=== PATIENT | male | born 1980 | race Two or more races ===

== ENCOUNTER 2019-07-24 20:43 | Inpatient (IN) | payer MEDICAID ==
[~2019-07-24] VITALS: Ht 162.6 cm; Wt 61.7 kg
[2019-07-24 20:45] VITALS: BP 146/72
--- NOTE | 2019-07-24 20:45 | NUR ---
ED Nurse Note: Pt biba from home CO alcohol withdrawl and possible sz. PT VS elevated, ermd aware. Pt confused and disoriented, aao x 2. Pt restless, japanese speaking only. PT has bruising on bottom lip bilaterally from chewing on lips. ERMD at bedside
--- NOTE | 2019-07-24 20:50 | NUR ---
ED Nurse Note: pt has bruising and bite nickerson on left side of tongue, ERMD aware.
--- NOTE | 2019-07-24 20:58 | Emergency Room Report ---
History of Present Illness General Chief Complaint: General Complaint Present Illness HPI 39-year-old male presented by EMS from home due to possible alcohol withdrawal. Patient has a history of heavy drinking, apparently last drink was yesterday, family noted patient having tremors and confused so EMS was called. Patient was confused on arrival to the ER. Family reports that patient has a history of alcohol withdrawal. Patient denied any pain and otherwise denies any medical history. Allergies: Coded Allergies: No Known Allergies (Unverified , 01/06/13) COVID-19 Screening Contact w/high risk pt: No Recent Travel to affected area: No Experienced COVID-19 symptoms?: No Patient History Reviewed Nursing Documentation: PMH: Agreed; PSxH: Agreed Nursing Documentation-PMH Hx Hypertension: Yes Hx Diabetes: Yes Review of Systems All Other Systems: negative except mentioned in HPI Physical Exam Vital Signs Date Time Temp Pulse Resp B/P (MAP) Pulse Ox O2 Delivery O2 Flow Rate FiO2 07/24/19 20:39 97.9 96 20 146/72 (96) 97 Room Air Sp02 EP Interpretation: reviewed, normal General Appearance: well appearing, other - Patient appears tremulous Head: normocephalic, atraumatic Eyes: bilateral eye PERRL, bilateral eye EOMI ENT: hearing grossly normal, moist mucus membranes Neck: full range of motion, supple Respiratory: lungs clear, normal breath sounds, no rhonchi, no respiratory distress, no retraction, no wheezing Cardiovascular #1: normal peripheral pulses, no murmur, tachycardia Gastrointestinal: non tender, soft, non-distended, no guarding Neurologic: alert, no focal defects, other - Patient alert and oriented to name and place, tremor noted Skin: normal color, warm/dry Procedures Critical Care Time Critical Care Time Local care critical care is managing this patient due to presentation alcohol withdrawal requiring acute intervention. Critical care time is approximately 35 minutes and excludes procedures Medical Decision Making Diagnostic Impression: Primary Impression: Acute hyperactive alcohol withdrawal delirium ER Course Differential diagnosis included but not limited to alcohol intoxication, delirium tremens, alcohol withdrawal, drug intoxication, dehydration to name a few. In the ER laboratory studies were sent, Ativan given 2 mg IV once. IV fluids given. Patient required multiple doses of Ativan in the ER. He remained mildly confused and with tremor and signs of alcohol withdrawal so we will plan to admit to telemetry for further observation and treatment. Patient admitted to the hospitalist. Laboratory Tests Test 07/24/19 21:00 07/24/19 22:20 White Blood Count 10.8 K/UL (4.8-10.8) Red Blood Count 4.26 M/UL (4.70-6.10) L Hemoglobin 12.8 G/DL (14.2-18.0) L Hematocrit 40.4 % (42.0-52.0) L Mean Corpuscular Volume 95 FL (80-99) Mean Corpuscular Hemoglobin 30.0 PG (27.0-31.0) Mean Corpuscular Hemoglobin Concent 31.7 G/DL (32.0-36.0) L Red Cell Distribution Width 15.5 % (11.6-14.8) H Platelet Count 77 K/UL (150-450) L Mean Platelet Volume 8.2 FL (6.5-10.1) Neutrophils (%) (Auto) 84.7 % (45.0-75.0) H Lymphocytes (%) (Auto) 6.2 % (20.0-45.0) L Monocytes (%) (Auto) 8.5 % (1.0-10.0) Eosinophils (%) (Auto) 0.0 % (0.0-3.0) Basophils (%) (Auto) 0.6 % (0.0-2.0) Sodium Level 134 MMOL/L (136-145) L Potassium Level 3.4 MMOL/L (3.5-5.1) L Chloride Level 95 MMOL/L (98-107) L Carbon Dioxide Level 19 MMOL/L (21-32) L Anion Gap 20 mmol/L (5-15) H Blood Urea Nitrogen 16 mg/dL (7-18) Creatinine 1.4 MG/DL (0.55-1.30) H Estimated Glomerular Filtration Rate 56.4 mL/min (>60) Glucose Level 149 MG/DL (74-106) H Calcium Level 9.8 MG/DL (8.5-10.1) Total Bilirubin 1.4 MG/DL (0.2-1.0) H Direct Bilirubin 0.6 MG/DL (0.0-0.3) H Aspartate Amino Transferase (AST) 130 U/L (15-37) H Alanine Aminotransferase (ALT) 60 U/L (12-78) Alkaline Phosphatase 157 U/L (46-116) H Total Protein 8.6 G/DL (6.4-8.2) H Albumin 4.2 G/DL (3.4-5.0) Globulin 4.4 g/dL Albumin/Globulin Ratio 1.0 (1.0-2.7) Lipase 308 U/L (73-393) Serum Alcohol < 3 mg/dL Urine Color Yellow Urine Appearance Clear Urine pH 7 (4.5-8.0) Urine Specific [place] 1.010 (1.005-1.035) Urine Protein 3+ (NEGATIVE) H Urine Glucose (UA) Negative (NEGATIVE) Urine Ketones Negative (NEGATIVE) Urine Blood 3+ (NEGATIVE) H Urine Nitrite Negative (NEGATIVE) Urine Bilirubin Negative (NEGATIVE) Urine Urobilinogen Normal MG/DL (0.0-1.0) Urine Leukocyte Esterase 1+ (NEGATIVE) H Urine RBC Pending Urine WBC Pending Urine Squamous Epithelial Cells Pending Urine Bacteria Pending Urine Opiates Screen Pending Urine Barbiturates Screen Pending Phencyclidine (PCP) Screen Pending Urine Amphetamines Screen Pending Urine Benzodiazepines Screen Pending Urine Cocaine Screen Pending Urine Marijuana (THC) Screen Pending EKG Diagnostic Results Rate: tachycardiac Rhythm: NSR ST Segments: no acute changes Other Impression Sinus tachycardia Rhythm Strip Diag. Results Rate: 104 Rhythm: other - Sinus tachycardia Last Vital Signs Date Time Temp Pulse Resp B/P (MAP) Pulse Ox O2 Delivery O2 Flow Rate FiO2 07/24/19 20:39 97.9 96 20 146/72 (96) 97 Room Air Disposition: ADMITTED INPATIENT Condition: Serious Donovan Odom M.D. Jul 24, 2019 20:58
[2019-07-24] MEDS ORDERED: LORazepam Inj 2mg/ml 1ml IV ONE ×4 (21:00→23:00)
--- NOTE | 2019-07-24 21:00 | NUR ---
ED Nurse Note: blood work sent to lab, iv on left AC. Pt in bed.
[2019-07-24 21:22] LABS: HEMATOCRIT 40.4 % (42.0-52.0); HEMOGLOBIN 12.8 G/DL (14.2-18.0); MEAN CORPUSCULAR VOLUME 95 FL (80-99); PLATELET COUNT 77 K/UL (150-450); RED BLOOD COUNT 4.26 M/UL (4.70-6.10); RED CELL DISTRIBUTION WIDTH 15.5 % (11.6-14.8); WHITE BLOOD COUNT 10.8 K/UL (4.8-10.8)
[2019-07-24 21:23] LABS: BASOPHILS % (AUTO) 0.6 % (0.0-2.0); LYMPHOCYTES % (AUTO) 6.2 % (20.0-45.0); MONOCYTES % (AUTO) 8.5 % (1.0-10.0); NEUTROPHILS % (AUTO) 84.7 % (45.0-75.0)
[2019-07-24 21:28] LABS: ANION GAP 20 mmol/L (5-15); BLOOD UREA NITROGEN 16 mg/dL (7-18); CALCIUM 9.8 MG/DL (8.5-10.1); CARBON DIOXIDE 19 MMOL/L (21-32); CHLORIDE 95 MMOL/L (98-107); CREATININE 1.4 MG/DL (0.55-1.30); POTASSIUM 3.4 MMOL/L (3.5-5.1); SODIUM 134 MMOL/L (136-145)
--- NOTE | 2019-07-24 21:29 | NUR ---
ED Nurse Note: Pt took out IV on Left AC and climbed out of bed. Pt placed back in bed, new iv started on Right ac 20g patent and flowing. IV fluids running. All medications administered. pt tolerated well no ss of distress noted.
--- NOTE | 2019-07-24 21:33 | NUR ---
PATIENTS FAMILY MEMBER [phone]
[2019-07-24 21:42] LABS: ALANINE AMINOTRANSFERASE 60 U/L (12-78); ALBUMIN 4.2 G/DL (3.4-5.0); ALKALINE PHOSPHATASE 157 U/L (46-116); ASPARTATE AMINO TRANSFERASE 130 U/L (15-37); BILIRUBIN,TOTAL 1.4 MG/DL (0.2-1.0)
[2019-07-24 21:45] LABS: BILIRUBIN,DIRECT 0.6 MG/DL (0.0-0.3)
--- NOTE | 2019-07-24 22:25 | NUR ---
ED Nurse Note: UA obtained and sent to lab
[2019-07-24 22:32] LABS: APPEARANCE,URINE CLEAR; BILIRUBIN, URINE NEGATIVE (NEGATIVE); GLUCOSE, URINE (UA) NEGATIVE (NEGATIVE); KETONES,URINE NEGATIVE (NEGATIVE); LEUKOCYTE ESTERASE ,URINE 1+ (NEGATIVE); NITRITE,URINE NEGATIVE (NEGATIVE); PH,URINE 7 (4.5-8.0); PROTEIN,URINE 3+ (NEGATIVE); UROBILINOGEN,URINE NORMAL MG/DL (0.0-1.0)
[2019-07-24 22:33] LABS: COLOR,URINE YELLOW
[2019-07-24] MEDS ORDERED: LORazepam Inj 2mg/ml 1ml IV PRN (22:45)
[2019-07-24] MEDS ORDERED: LORazepam Inj 2mg/ml 1ml ONE (22:52)
--- NOTE | 2019-07-24 23:56 | NUR ---
ED Nurse Note: report given to FLORI Pinto TELE unit. no bed, pending transfer
[2019-07-25] MEDS ORDERED: Folic Acid 1 MG, Magnesium Sulfate 2,000 MG, Multivitamin - 12 Injection 10 ML in Sodiu... IV ONE ×4
[2019-07-25] MEDS ORDERED: LORazepam Inj 2mg/ml 1ml IV ONE
[2019-07-25] MEDS ORDERED: Thiamine 100mg in D5W 55ml IVPB ONE ×2
--- NOTE | 2019-07-25 00:10 | NUR ---
ER DISCHARGE NOTE: Patient is cleared to be discharged to telemetry unit per ERMD, pt is aox2, on room air, with elevated vital signs; ERMD aware. pt was able to verbalize understanding. pt is unable to ambulate steadily. pt took all belongings. Report given to FLORI Pinto. Pt transferred with 1 RN and 1 property maintenance supervisor
[2019-07-25 00:15] VITALS: BP 137/92
--- NOTE | 2019-07-25 00:15 | NUR ---
NURSE NOTES: RECEIVED PATIENT FROM FLORI SULLIVAN. PATIENT TRANSFERRED TO TELEMETRY FROM ED VIA GURNEY ACCOMPANIED BY TWO STAFF MEMBERS, WITHOUT ANY INCIDENT. PATIENT NOTED TO BE RESTLESS AND COMBATIVE DURING TRANSFER. PATIENT'S BREATHING EVEN AND UNLABORED ON 2L VIA NASAL CANNULA, NO S/SX OF DISTRESS. PATIENT HAS SOFT RESTRAINTS ON BILATERAL WRISTS- NOTED TO HAVE GOOD CIRCULATION, GOOD SENSATION, AND SKIN INTACT. PATIENT PLACED ON BULL WHEEL WORKER, SINUS TACHY ON MONITOR WITH HR OF 111 BPM. BELONGINGS LIST CHECKED WITH TRANSFERRING RN. BODY ASSESSMENT DONE, UNABLE TO OBTAIN COMPLETE MEDICAL HISTORY DUE TO PATIENT'S CURRENT CONDITION. IV SITE ON RIGHT FOREARM INTACT AND PATENT, WITH NS RUNNING FROM ED. PADDED SIDERAILS UP X 2. BED LOCKED AND IN LOWEST POSITION. CALL LIGHT WITHIN REACH. WILL CONTINUE TO MONITOR.
[2019-07-25] MEDS ORDERED: Folic Acid 5mg/ml Vial IV ONE (00:58)
[2019-07-25] MEDS ORDERED: MVI-12 10ml Inj IV ONE (01:12)
--- NOTE | 2019-07-25 01:30 | NUR ---
NURSE NOTES: CONTACTED DR. HOLDEN REGARDING ORDER FOR BANANA BAG OF FOLIC ACID/MAG SULFATE/MULTIVITAMIN- PER PHARMACY, UNABLE TO MIX OVERNIGHT. WAITING FOR DOCTOR TO CALL BACK.
[2019-07-25 04:00] VITALS: BP 125/85
[2019-07-25] MEDS: NS w/KCl 20mEq 1000ml 1,000 ML IV SCH ×3 (04:16→18:33)
[2019-07-25] MEDS ORDERED: LORazepam Inj 2mg/ml 1ml IV PRN (06:12)
--- NOTE | 2019-07-25 07:30 | NUR ---
NURSE NOTES: pt in bed having breakfast. site monitor on, pt has no signs of cardiac or respiratory distress at this time. Call light within reach, bed is in lowest position and locked. Rails up x2, bed alarm on. Rails are padded. Pt mouth is swollen and has scabs. pt on restrains. Will continue to monitor pt and lab values. Reported to dr. Alberto pt T 100.7.
[2019-07-25 07:34] LABS: ANION GAP 12 mmol/L (5-15); BLOOD UREA NITROGEN 13 mg/dL (7-18); CALCIUM 9.4 MG/DL (8.5-10.1); CARBON DIOXIDE 24 MMOL/L (21-32); CHLORIDE 104 MMOL/L (98-107); CREATININE 0.8 MG/DL (0.55-1.30); POTASSIUM 3.9 MMOL/L (3.5-5.1); SODIUM 140 MMOL/L (136-145)
--- NOTE | 2019-07-25 07:42 | NUR ---
HAND-OFF: Report given to FLORI LOZOYA. PLAN OF CARE ENDORSED.
[2019-07-25 07:45] LABS: ALANINE AMINOTRANSFERASE 54 U/L (12-78); ALBUMIN 3.9 G/DL (3.4-5.0); ALBUMIN/GLOBULIN RATIO 0.9 (1.0-2.7); ALKALINE PHOSPHATASE 134 U/L (46-116); ASPARTATE AMINO TRANSFERASE 147 U/L (15-37); BILIRUBIN,TOTAL 1.5 MG/DL (0.2-1.0)
[2019-07-25 07:47] LABS: BILIRUBIN,DIRECT 0.5 MG/DL (0.0-0.3)
[2019-07-25 08:06] VITALS: BP 124/86
[2019-07-25] MEDS ORDERED: LORazepam 1mg tab ORAL PRN (08:30)
--- NOTE | 2019-07-25 08:45 | History and Physical Report ---
DATE OF ADMISSION: 07/24/2019 CHIEF COMPLAINT: Alcohol withdrawal. HISTORY OF PRESENT ILLNESS: The patient is a 39-year-old male. He has a history of heavy alcohol use, questionable seizures, he presented with alcohol withdrawal. He is a poor historian. He states he has been drinking for "years." He is unclear of his last drink, but he was brought in by family members because of alcohol intoxication and possible seizure. In the ER, he was noted to be agitated and confused, requiring several doses of Ativan. He is now admitted for further evaluation and care. He denies fevers, chills, or cough. PAST MEDICAL HISTORY: As above. PAST SURGICAL HISTORY: None. CURRENT MEDICATIONS: None. FAMILY HISTORY: None. SOCIAL HISTORY: Significant for at least nine years of heavy alcohol use. REVIEW OF SYSTEMS: Unremarkable. PHYSICAL EXAMINATION: VITAL SIGNS: Temperature 99, pulse 109, respirations 24, blood pressure 125/85. GENERAL: The patient is well developed. There is noted to be some swelling of his lips. NECK: Supple. HEART: Regular rate and rhythm. LUNGS: Clear. ABDOMEN: Soft. EXTREMITIES: Without clubbing, cyanosis, or edema. LABORATORY DATA: Labs were reviewed. ASSESSMENT: This is a 39-year-old male admitted with complaints of alcohol withdrawal. PLAN: IV fluids, thiamine supplementation, Ativan for withdrawal. Discharge plan in the next 24 to 48 hours depending on how the patient's alcohol withdrawal is doing. Jourdan Kenney M.D. DR: SHERRI JOB#: [id number] CC:
[2019-07-25] MEDS ORDERED: Heparin 5000 units/ml inj SUBQ SCH (09:00)
[2019-07-25] MEDS: Folic Acid 1 MG, Magnesium Sulfate 2,000 MG, Multivitamin - 12 Injection 10 ML in Sodiu... IV SCH (09:00)
[2019-07-25] MEDS ORDERED: Thiamine 100mg tab ORAL SCH (09:00)
[2019-07-25] MEDS: Thiamine 100mg in D5W 55ml IVPB SCH (11:08)
[2019-07-25 12:14] VITALS: BP 139/90
[2019-07-25] MEDS ORDERED: Tubing IV Secondary IV ONE (12:37)
[2019-07-25 16:21] VITALS: BP 129/89
--- NOTE | 2019-07-25 19:38 | NUR ---
HAND-OFF: Report given to Marifer/hebert pt in stable condition.
[2019-07-25 20:02] VITALS: BP 116/79
--- NOTE | 2019-07-25 21:32 | NUR ---
NURSE NOTES: Received pt from FLORI Jaramillo. Pt awake, alert, and talkative (south african speaking only). Bed in lowest position. Call light within reach. Sitter at bedside. Will continue to monitor.
[2019-07-26] VITALS: BP 123/77
[2019-07-26] MEDS: NS w/KCl 20mEq 1000ml 1,000 ML IV SCH ×3 (03:00→19:00)
[2019-07-26 04:00] VITALS: BP 197/169
--- NOTE | 2019-07-26 07:29 | NUR ---
HAND-OFF: Report given to FLORI Jaramillo. Pt stable.
--- NOTE | 2019-07-26 07:41 | NUR ---
NURSE NOTES: pt is very agitated pulling everything, IV cloth. Pt on flume ride operator tachycardic, no respiratory distress at this time. Sitter at bedside, pt has restraints on but pulls them off all the time. Bed alarm on, side rails up x2, bed in lowest position. Call light within reach. Pt is alert x1 but very confused.
[2019-07-26 07:50] VITALS: BP 153/109
[2019-07-26] MEDS: Folic Acid 1 MG, Magnesium Sulfate 2,000 MG, Multivitamin - 12 Injection 10 ML in Sodiu... IV SCH (09:43)
[2019-07-26] MEDS: Thiamine 100mg in D5W 55ml IVPB SCH (09:44)
--- NOTE | 2019-07-26 11:05 | General Progress Note ---
Assessment/Plan Problem List: (1) Altered mental status ICD Codes: R41.82 - Altered mental status SNOMED: 242669625 (2) Acute hyperactive alcohol withdrawal delirium ICD Codes: F10.231 - Alcohol dependence with withdrawal delirium SNOMED: 1978027, 17505880, 56467231263588742 Status: stable, not improved Assessment/Plan: ivf vitamin supplements iv po ativan Subjective ROS Limited/Unobtainable: Yes Constitutional: Reports: malaise, weakness HEENT: Reports: no symptoms Cardiovascular: Reports: no symptoms Respiratory: Reports: no symptoms Gastrointestinal/Abdominal: Reports: no symptoms Genitourinary: Reports: no symptoms Neurologic/Psychiatric: Reports: anxiety Endocrine: Reports: no symptoms Hematologic/Lymphatic: Reports: no symptoms Allergies: Coded Allergies: No Known Allergies (Unverified , 01/06/13) All Systems: reviewed and negative except above Subjective agitated and anxious. requiring restraints and iv ativan. confused. still having some hallucinations. Objective Last 24 Hour Vital Signs Date Time Temp Pulse Resp B/P (MAP) Pulse Ox O2 Delivery O2 Flow Rate FiO2 07/26/19 07:50 98.8 116 24 153/109 (124) 97 07/26/19 04:00 68 07/26/19 04:00 98.0 124 26 197/169 (178) 100 07/26/19 00:00 73 07/26/19 00:00 98.2 75 20 123/77 (92) 98 07/25/19 21:00 Room Air 07/25/19 20:02 98.6 82 20 116/79 (91) 98 07/25/19 20:00 81 07/25/19 16:21 98.9 90 20 129/89 (102) 99 07/25/19 16:00 101 07/25/19 12:14 99.3 105 20 139/90 (106) 99 07/25/19 12:00 91 Intake and Output 07/25/19 07/26/19 19:00 07:00 Output Total 2000 ml Balance -2000 ml Output Urine Total 2000 ml Height (Feet): 5 Height (Inches): 4.00 Weight (Pounds): 152 General Appearance: WD/WN, confused Cardiovascular: normal rate Respiratory/Chest: lungs clear Abdomen: soft Edema: no edema noted Arm (L), no edema noted Arm (R), no edema noted Leg (L), no edema noted Leg (R), no edema noted Pedal (L), no edema noted Pedal (R), no edema noted Generalized Neurologic: disoriented Jourdan Kenney MD Jul 26, 2019 11:05
[2019-07-26 12:12] VITALS: BP 135/89
--- NOTE | 2019-07-26 14:09 | NUR ---
NURSE NOTES: pt still hallucinating severly. doctor Bakari was added to the case. 1716 Ativan 2mg IM one time order was ordered by doctor Villegas 1932 a second order of Ativan 2mg IM plus Benadryl 50mg were ordered by doctor Villegas, pt is too agitated and restless and shaking. sitter at bedside trying to assist pt. while on restraint because he continuously pulls them off.
[2019-07-26] MEDS ORDERED: LORazepam Inj 2mg/ml 1ml IM PRN (14:15)
[2019-07-26] MEDS: chlordiazePOXIDE 25mg Cap ORAL SCH ×3 (14:55→23:08)
[2019-07-26] MEDS ORDERED: DiphenhydrAMINE 50mg/ml Inj IM SCH (15:15)
[2019-07-26] MEDS ORDERED: Haloperidol 5mg/ml Inj IM SCH (15:15)
[2019-07-26 16:00] VITALS: BP 157/97
[2019-07-26] MEDS ORDERED: LORazepam Inj 2mg/ml 1ml IM SCH ×3 (17:15→20:00)
--- NOTE | 2019-07-26 19:25 | NUR ---
HAND-OFF: Report given to Stacie/FLORI.
[2019-07-26 20:00] VITALS: BP 169/104
[2019-07-26] MEDS ORDERED: DiphenhydrAMINE 50mg/ml Inj IM ONE (20:00)
[2019-07-27] VITALS: BP_SYST 166; BP_SYST 184; BP_DIAS 104; BP_DIAS 84
--- NOTE | 2019-07-27 00:30 | Consultation ---
DATE OF CONSULTATION: 07/26/2019 CONSULTING PHYSICIAN: Willi Sherman M.D. HISTORY OF PRESENT ILLNESS: This is a 39-year-old male who is Gabonese-speaking, heavy drinker. The patient is easily agitated. He received multiple doses of benzodiazepine today. He is also hallucinating, agitated, confused, not able to be engaged in the evaluation. In addition, he has been coming out of bed and is not redirectable. PAST PSYCHIATRIC HISTORY: Unknown. PAST MEDICAL HISTORY: Nonsignificant. ALLERGIES: No known drug allergies. SUBSTANCE ABUSE HISTORY: His system is negative for drugs; however, he is a heavy drinker. MENTAL STATUS EXAMINATION: The patient is awake, confused, disoriented. Mood is agitated. Affect is flat. Thought process is concrete. Thought content, no suicidal or homicidal ideation. Cognition is impaired. Insight and judgment impaired. ASSESSMENT: [place] I Alcohol dependence, alcohol withdrawal. [place] II Deferred. [place] III As above. [place] IV Low. [place] V 20. PLAN: 1. The patient will be started on Librium. 2. Ativan. 3. Risperidone. 4. The patient received a cocktail as well. 5. The patient has restraints. 6. Discussed with the nurse. Willi Sherman M.D. DR: MYRIAM JOB#: [id number] CC:
--- NOTE | 2019-07-27 01:01 | NUR ---
NURSE NOTES: Received patient from FLORI Jaramillo. Patient AO x 2. Patient is in severe alcohol withdrawal. He is on non violent restraint. Patient continues to pull his IV off. I was able to insert new one on Right upper arm. There are no signs of erythema, infiltration, or bleeding. Bed in the lowest position. Seizure precaution activated.Will continue plan of .
--- NOTE | 2019-07-27 01:43 | NUR ---
Patient very restless. Pulling on restraints. Dr. Sherman ordered Librium. Given as ordered.
--- NOTE | 2019-07-27 01:54 | NUR ---
Patients heart rate is 166. He is still very agitated. Left a message for Dr. Sherman, waiting for response.
--- NOTE | 2019-07-27 02:02 | NUR ---
NURSE NOTES: Patients heart rate is 166. He is still very agitated. Left a message for Dr. Becerra, waiting for response.
--- NOTE | 2019-07-27 02:12 | NUR ---
NURSE NOTES: Dr. Becerra ordered Ativan 2mg. Will give as ordered.
[2019-07-27] MEDS: LORazepam Inj 2mg/ml 1ml IV PRN ×3 (02:20→20:16)
[2019-07-27] MEDS: NS w/KCl 20mEq 1000ml 1,000 ML IV SCH ×2 (03:00→11:00)
[2019-07-27 04:00] VITALS: BP 162/88
--- NOTE | 2019-07-27 07:34 | NUR ---
HAND-OFF: Report given to FLORI Figueroa. Patient is still on restraints with sitter next to him. Endorsed plan of care.
[2019-07-27 07:40] LABS: ALANINE AMINOTRANSFERASE 101 U/L (12-78); ALBUMIN 4.1 G/DL (3.4-5.0); ALKALINE PHOSPHATASE 143 U/L (46-116); ANION GAP 19 mmol/L (5-15); ASPARTATE AMINO TRANSFERASE 261 U/L (15-37); BILIRUBIN,TOTAL 1.7 MG/DL (0.2-1.0); BLOOD UREA NITROGEN 20 mg/dL (7-18); CALCIUM 9.7 MG/DL (8.5-10.1); CARBON DIOXIDE 16 MMOL/L (21-32); CHLORIDE 110 MMOL/L (98-107); CREATININE 0.9 MG/DL (0.55-1.30); POTASSIUM 3.8 MMOL/L (3.5-5.1); SODIUM 145 MMOL/L (136-145)
[2019-07-27 07:42] LABS: BILIRUBIN,DIRECT 0.8 MG/DL (0.0-0.3)
[2019-07-27 08:00] VITALS: BP 119/88
[2019-07-27] MEDS: Folic Acid 1 MG, Magnesium Sulfate 2,000 MG, Multivitamin - 12 Injection 10 ML in Sodiu... IV SCH (09:00)
[2019-07-27] MEDS: Thiamine 100mg in D5W 55ml IVPB SCH (09:00)
[2019-07-27] MEDS: chlordiazePOXIDE 25mg Cap ORAL SCH ×3 (09:18→17:00)
--- NOTE | 2019-07-27 10:41 | General Progress Note ---
Assessment/Plan Problem List: (1) Altered mental status ICD Codes: R41.82 - Altered mental status SNOMED: 412147222 (2) Acute hyperactive alcohol withdrawal delirium ICD Codes: F10.231 - Alcohol dependence with withdrawal delirium SNOMED: 2784476, 30664432, [id number] Status: stable, not improved Assessment/Plan: ivf vitamin supplements iv po ativan check ct abd or us cxr Subjective ROS Limited/Unobtainable: No Constitutional: Reports: fever, malaise, weakness HEENT: Reports: no symptoms Cardiovascular: Reports: no symptoms Respiratory: Reports: no symptoms Gastrointestinal/Abdominal: Reports: no symptoms Genitourinary: Reports: no symptoms Neurologic/Psychiatric: Reports: anxiety, emotional problems Endocrine: Reports: no symptoms Hematologic/Lymphatic: Reports: anemia Allergies: Coded Allergies: No Known Allergies (Unverified , 01/06/13) All Systems: reviewed and negative except above Subjective still agitated and confused. had some low grade temps. no cough. +hallucination Objective Last 24 Hour Vital Signs Date Time Temp Pulse Resp B/P (MAP) Pulse Ox O2 Delivery O2 Flow Rate FiO2 07/27/19 08:12 133 07/27/19 08:00 98.2 130 24 119/88 (98) 97 07/27/19 06:12 101.5 07/27/19 04:00 101.9 142 24 162/88 (112) 97 07/27/19 04:00 154 07/27/19 01:16 166/86 07/27/19 00:00 98.5 166 24 166/84 (111) 93 07/27/19 00:00 153 07/26/19 21:00 Room Air 07/26/19 20:00 98.1 136 22 169/104 (125) 95 07/26/19 16:00 97.2 110 21 157/97 (117) 95 07/26/19 12:12 99.3 92 21 135/89 (104) 97 07/26/19 12:00 110 Intake and Output 07/26/19 07/27/19 19:00 07:00 Intake Total 480 ml Output Total 400 ml Balance 80 ml Intake Oral 480 ml Output Urine Total 400 ml # Voids 4 # Bowel Movements 1 Laboratory Tests 07/27/19 05:40: Sodium Level 145, Potassium Level 3.8, Chloride Level 110H, Carbon Dioxide Level 16L, Anion Gap 19H, Blood Urea Nitrogen 20H, Creatinine 0.9, Estimat Glomerular Filtration Rate > 60, Glucose Level 105, Calcium Level 9.7, Total Bilirubin 1.7H, Direct Bilirubin 0.8H, Aspartate Amino Transf (AST/SGOT) 261H, Alanine Aminotransferase (ALT/SGPT) 101H, Alkaline Phosphatase 143H, Total Protein 8.3H, Albumin 4.1, Globulin 4.2, Albumin/Globulin Ratio 1.0 Height (Feet): 5 Height (Inches): 4.00 Weight (Pounds): 152 General Appearance: WD/WN, alert Neck: supple Cardiovascular: regular rhythm Respiratory/Chest: normal breath sounds Abdomen: normal bowel sounds, non tender, soft, no organomegaly Edema: no edema noted Arm (L), no edema noted Arm (R), no edema noted Leg (L), no edema noted Leg (R), no edema noted Pedal (L), no edema noted Pedal (R), no edema noted Generalized Neurologic: disoriented Jourdan Kenney MD Jul 27, 2019 10:41
[2019-07-27 12:00] VITALS: BP 150/83
[2019-07-27] MEDS: Piperacillin/Tazobactam 3.375 GM in NS 110 ML IVPB SCH ×2 (12:00→22:09)
--- NOTE | 2019-07-27 12:50 | NUR ---
Social Work This SW received a consult to assist with substance abuse. Patient currently is in detox, confused, agitated, has a sitter at bedside (speaks only Mohawk). This SW spoke son, Andrei (along with spouse, Ana Laura speaks Mohawk) @ [phone]. Both explained their concerns for patient history of substance abuse (alcohol: tequila and beer). Patient has been working horticultural worker in construction, while son reports he has been having accidents there from being intoxicated). Patient is currently out of work due to instructions to isolate due to the [place] Virus. Patient has made attempts in the past, x3 and attending AA meetings, while quitting for six months, then relapsing. This SW educated family regarding patients willingness to quit. Son reports patient appears to want to quit using alcohol, but then returns to drinking again. Family denied any other mental health or other concerns at this time. Patient does not have any insurance for inpatient treatment. This SW provided contact for treatment (for uninsured), Mohawk speakin) [facility]) [facility] (this SW spoke with intake who explains they have openings, but pending clearance due to Kim Virus. SW to speak with patient regarding treatment/resources (when able) as well. Family expressing no other needs or concerns at this time.
--- NOTE | 2019-07-27 13:22 | NUR ---
RADIOLOGY DEPT., CHEST X-RAY COMPLETED.-P.DYE
--- NOTE | 2019-07-27 13:35 | Diagnostic Imaging Report ---
Indication: Shortness of Technique: One view of the chest Comparison: none Findings: Elevation right hemidiaphragm, resulting in some crowding of bronchovascular markings. Questionable patchy opacities are seen in the right upper lobe. The remainder the lungs and pleural spaces are clear. Impression: Questionable patchy right upper lobe opacities, could represent infiltrates if real. Correlate with clinical findings.
--- NOTE | 2019-07-27 14:16 | NUR ---
CASE MANAGEMENT:REVIEW 39 YR OLD MALE ALEX FROM HOME CC: TREMORS AND POSSIBLE SEIZURES PMH: ALCOHOLISM. SEIZURES SI: ALCOHOL WITHDRAWAL DELIRIUM 97.9 122 26 156/86 98% ON RA CR+1.4 TBILI+1.4 DBILI+0.6 AST+130 IS: 1L NS BOLUS IV ATIVAN X3 URINE CX : TO TELEMETRY PLAN: SOCIAL SERVICE CONSULT 07/27/19 SI: ALCOHOL WITHDRAWAL DELIRIUM 101.5 130 24 119/88 97% ON RA BUN+20 TBILI+1.7 DBILI+0.8 AST/ALT+261/101 IS: IV ZOSYN Q8HRS IV BANANA BAG Q24 IVF+KCL@125/HR IV THIAMINE Q24 PROTONIX PO QD LIBRIUM PO TID RISPERDAL PO QHS : TELEMETRY STATUS DCP: FROM HOME PLAN: SEEN BY DISPATCH MACHINE RUNNER ~ OUTPATIENT SUBSTANCE TREATMENT Addendum: 07/27/19 at 1439 by KEVIN ESPINOZA LVN LVN INTERQUAL CRITERIA MET
[2019-07-27 16:00] VITALS: BP 148/83
--- NOTE | 2019-07-27 18:48 | NUR ---
NURSE NOTES: rn collected covid specimen and sent to lab. technical issues , reordered. lab is aware of the order now.
--- NOTE | 2019-07-27 19:15 | NUR ---
NURSE NOTES: Got report from Henry RUBY. Denies any pain. No s/s of distress or discomfort noted. Pt resting in bed comfortably. Pt on bilateral soft wrist restraints. 1-1 sitter in room. Bed in low and locked position, call light within reach, bedside table within reach. Continue to monitor.
[2019-07-27 20:00] VITALS: BP 150/85
--- NOTE | 2019-07-27 22:37 | Psych Consult Progress Note ---
Psychiatry Progress Note Psychiatry Progress Note Subjective the pt is more manageable. the pt is in isolation now Medications Current Medications Medications (Trade) Dose Ordered Sig/Artem Route PRN Reason Start Time Stop Time Status Last Admin Dose Admin Acetaminophen (Tylenol) 650 mg Q4H PRN ORAL Mild Pain (Pain Scale 1-3) 07/24/19 22:45 08/23/19 22:44 07/27/19 20:16 Chlordiazepoxide (Librium) 50 mg TID ORAL 07/26/19 22:30 08/02/19 22:29 07/27/19 13:00 Clonidine HCl (Catapres Tab) 0.1 mg Q4H PRN ORAL For High Blood Pressure 07/26/19 11:07 10/24/19 11:06 07/27/19 01:16 Folic Acid 1 mg/ Magnesium Sulfate 2000 mg/ Multivitamins 10 ml/Sodium Chloride 1,014.2 ml @ 125 mls/ hr Q24H IV 07/25/19 09:00 08/24/19 08:59 07/27/19 09:00 Lorazepam (Ativan 2mg/ml 1ml) 2 mg Q4H PRN IV For Anxiety 07/27/19 02:15 08/03/19 02:14 07/27/19 20:16 Ondansetron HCl (Zofran) 4 mg Q6H PRN IVP Nausea & Vomiting 07/25/19 02:15 08/24/19 02:14 Pantoprazole (Protonix) 40 mg DAILY@0630 ORAL 07/25/19 06:30 08/24/19 06:29 07/27/19 05:41 Piperacillin Sod/ Tazobactam Sod 3.375 gm/Sodium Chloride 110 ml @ 27.5 mls/hr EVERY 8 HOURS IVPB 07/27/19 12:00 08/01/19 11:59 07/27/19 22:09 Risperidone (RisperDAL) 1 mg BEDTIME ORAL 07/26/19 21:00 09/09/19 20:59 07/27/19 21:00 Thiamine HCl 100 mg/Dextrose 56 ml @ 112 mls/hr Q24H IVPB 07/25/19 09:00 08/24/19 08:59 07/27/19 09:00 Neurological/Psychiatric: Reports: anxiety, emotional problems Allergies: Coded Allergies: No Known Allergies (Unverified , 01/06/13) Objective Data Height (Feet): 5 Height (Inches): 4.00 Weight (Pounds): 152 General Appearance: WD/WN, alert, confused, agitated Additional Comments: awake, confused, disoriented. Mood is agitated. Affect is flat. Thought process is concrete. Thought content, no suicidal or homicidal ideation. Cognition is impaired. Insight and judgment impaired. Assessment/Plan [place] I: ASSESSMENT: [place] I Alcohol dependence, alcohol withdrawal. [place] II Deferred. [place] III As above. [place] IV Low. [place] V 20. Status: stable, not improved Assessment/Plan: 1. The patient will be started on Librium. 2. Ativan. 3. Risperidone. Willi Sherman MD Jul 27, 2019 22:37
[2019-07-28] VITALS (8 sets, daily range): BP systolic 118–147; BP diastolic 75–82
[2019-07-28] MEDS: LORazepam Inj 2mg/ml 1ml IV PRN ×4 (01:00→15:13)
[2019-07-28] MEDS: Piperacillin/Tazobactam 3.375 GM in NS 110 ML IVPB SCH ×3 (05:56→20:44)
--- NOTE | 2019-07-28 07:20 | NUR ---
NURSE NOTES:Handoff received from FLORI Lemos. Patient awake and agitated in bilateral wrist restraints. No acute signs of distress noted. Patient is having a conversation with himself, seems very confused, Somali speaking. Bed in the low and locked position with call light next to right hand, will continue to monitor patient.
--- NOTE | 2019-07-28 07:30 | NUR ---
HAND-OFF: Report given to Javon RUBY.
--- NOTE | 2019-07-28 07:35 | NUR ---
NURSE NOTES:called nursing group home supervisor Olga regarding care of this patient. Patient is agitated and in bilateral wrist restraints. Patient is high fall risk, impulsive, non-compliant and able to get out of restraints. patient has had security called multiple times. Patient had a sitter that was discontinued. Olga informed me to contact Dr Lombardi to discuss patient care. Maria C does not want a sitter at this time because patient is rule out for Covid19.
[2019-07-28 07:50] LABS: ALANINE AMINOTRANSFERASE 167 U/L (12-78); ALBUMIN 3.8 G/DL (3.4-5.0); ALBUMIN/GLOBULIN RATIO 0.8 (1.0-2.7); ALKALINE PHOSPHATASE 135 U/L (46-116); ANION GAP 23 mmol/L (5-15); ASPARTATE AMINO TRANSFERASE 866 U/L (15-37); BILIRUBIN,TOTAL 1.9 MG/DL (0.2-1.0); BLOOD UREA NITROGEN 28 mg/dL (7-18); CARBON DIOXIDE 15 MMOL/L (21-32); CHLORIDE 115 MMOL/L (98-107); CREATININE 1.4 MG/DL (0.55-1.30); POTASSIUM 3.3 MMOL/L (3.5-5.1); SODIUM 153 MMOL/L (136-145)
[2019-07-28 07:52] LABS: BILIRUBIN,DIRECT 0.8 MG/DL (0.0-0.3)
[2019-07-28] MEDS: chlordiazePOXIDE 25mg Cap ORAL SCH ×3 (10:36→18:02)
[2019-07-28] MEDS: Thiamine 100mg in D5W 55ml IVPB SCH (10:36)
[2019-07-28] MEDS: Folic Acid 1 MG, Magnesium Sulfate 2,000 MG, Multivitamin - 12 Injection 10 ML in Sodiu... IV SCH (11:23)
--- NOTE | 2019-07-28 13:07 | NUR ---
NURSE NOTES:Received message from Emi Chloe + Isabel to call son. Called and spoke to Juana (Son) and updated him on patient condition. Informed him that patient is receiving IV fluids with vitamins and electrolytes and that patient has a fever that is being monitored.
--- NOTE | 2019-07-28 13:36 | NUR ---
NURSE NOTES:Called pharmacy to verify that Zosyn can be run with the banana bag. Pharmacy verified it is ok to run both together.
--- NOTE | 2019-07-28 13:44 | NUR ---
CASE MANAGEMENT:REVIEW 07/28/19 SI: ALCOHOL WITHDRAWAL DELIRIUM 103.6 124 20 143/81 95% ON RA NA+153 BUN+28 TBILI+1.9 DBILI+0.8 AST/ALT+866/167 IS: IV ZOSYN Q8HRS IV BANANA BAG Q24 IV THIAMINE Q24 PROTONIX PO QD LIBRIUM PO TID RISPERDAL PO QHS IV ATIVAN Q4HRS PRN ANXIETY : TELEMETRY STATUS DCP: FROM HOME PLAN: SEEN BY SOFTWARE ENGINEERING ASSOCIATE MANAGER ~ OUTPATIENT SUBSTANCE TREATMENT R/O COVID 19
--- NOTE | 2019-07-28 14:11 | NUR ---
NURSE NOTES:Patient fever is rising, even after tylenol administered. Placed ice packs on groin and under arms. fever currently 104.2 called and left a message for Dr Kenney.
--- NOTE | 2019-07-28 15:37 | NUR ---
NURSE NOTES:Dr Kenney called and gave TO/RB order for Motrin 200mg PO 3x day as needed for fever.
--- NOTE | 2019-07-28 17:02 | NUR ---
NURSE NOTES:patient temperature still 102.2 after Ibuprofen and Tylenol administered, as well as cooling measures of ice bags placed axilla, groin and forehead. Called for cooling blanket but both in use. Called and updated Dr Kenney on patient condition.
--- NOTE | 2019-07-28 17:15 | NUR ---
NURSE NOTES:Dr Kenney aware, no new orders.
--- NOTE | 2019-07-28 19:50 | NUR ---
NURSE NOTES: Received pt from FLORI Alejandro. Pt awake, alert, and talkative (estonian speaking only). Bed in lowest position. Call light within reach. Will continue to monitor.
[2019-07-28] MEDS: 1/2NS w/KCl 20mEq 1000ml 1,000 ML IV SCH (23:18)
[2019-07-29 04:00] VITALS: BP 119/83
[2019-07-29] MEDS: 1/2NS w/KCl 20mEq 1000ml 1,000 ML IV SCH ×2 (05:40→14:51)
[2019-07-29] MEDS: Piperacillin/Tazobactam 3.375 GM in NS 110 ML IVPB SCH ×3 (05:41→22:51)
--- NOTE | 2019-07-29 07:59 | NUR ---
NURSE NOTES: Received report from Bar Caicedo. Patient is awake, restless. Verbally responsive. NO complain of pain or discomfort. Fall and aspirations precautions in place. Call man within patients reached. Patients COVID swab came back negative. Dr Gao made aware and ordered to D/C droplet precautions. Noted and carried out. Will follow
[2019-07-29 08:00] VITALS: BP 112/78
[2019-07-29 08:00] LABS: HEMATOCRIT 38.4 % (42.0-52.0); HEMOGLOBIN 12.7 G/DL (14.2-18.0); MEAN CORPUSCULAR VOLUME 93 FL (80-99); PLATELET COUNT 93 K/UL (150-450); RED BLOOD COUNT 4.12 M/UL (4.70-6.10); RED CELL DISTRIBUTION WIDTH 13.9 % (11.6-14.8); WHITE BLOOD COUNT 7.6 K/UL (4.8-10.8)
[2019-07-29 08:21] LABS: ALANINE AMINOTRANSFERASE 259 U/L (12-78); ALBUMIN 3.4 G/DL (3.4-5.0); ALBUMIN/GLOBULIN RATIO 0.9 (1.0-2.7); ALKALINE PHOSPHATASE 104 U/L (46-116); ANION GAP 17 mmol/L (5-15); BILIRUBIN,TOTAL 1.6 MG/DL (0.2-1.0); BLOOD UREA NITROGEN 38 mg/dL (7-18); CARBON DIOXIDE 19 MMOL/L (21-32); CHLORIDE 120 MMOL/L (98-107); CREATININE 1.3 MG/DL (0.55-1.30); POTASSIUM 3.5 MMOL/L (3.5-5.1); SODIUM 155 MMOL/L (136-145)
[2019-07-29 08:36] LABS: ASPARTATE AMINO TRANSFERASE 1443 U/L (15-37)
[2019-07-29 08:38] LABS: BILIRUBIN,DIRECT 0.8 MG/DL (0.0-0.3)
[2019-07-29] MEDS: Folic Acid 1 MG, Magnesium Sulfate 2,000 MG, Multivitamin - 12 Injection 10 ML in Sodiu... IV SCH (08:56)
[2019-07-29] MEDS: Thiamine 100mg in D5W 55ml IVPB SCH (08:56)
[2019-07-29] MEDS: chlordiazePOXIDE 25mg Cap ORAL SCH ×3 (08:56→17:02)
--- NOTE | 2019-07-29 10:46 | Diagnostic Imaging Report ---
Indication: Abnormal liver function tests and abnormal renal function tests Technique: Saravia-scale and duplex images of the upper abdomen were obtained Comparison: none Findings: Gallbladder is unremarkable, without stones, wall thickening, nor pericholecystic fluid. Sonographic Stark's sign is negative. Common bile duct measures 5 mm in diameter. No intrahepatic biliary ductal dilatation. Liver demonstrates diffusely mildly increased echogenicity, consistent with diffuse hepatocellular disease, most likely fatty change. Portal vein and hepatic veins are patent. Pancreas is unremarkable. Spleen is unremarkable. Left kidney measures 11.8 cm in length. Right kidney measures 12 cm length. Both kidneys demonstrate normal echogenicity. There is no hydronephrosis. No focal abnormality . Abdominal aorta is partially obscured by bowel gas, visualized portions are non-aneurysmal . Impression: Liver demonstrates diffusely mildly increased echogenicity, consistent with diffuse hepatocellular disease, most likely fatty change. Negative for gallstones or dilated bile ducts Note inability to visualize portions of the abdominal aorta
--- NOTE | 2019-07-29 10:50 | NUR ---
RD ASSESSMENT & RECOMMENDATIONS SEE CARE ACTIVITY FOR COMPLETE ASSESSMENT DAILY ESTIMATED NEEDS: Needs based on general/ 62.6kg 25-30 kcals/kg 2435-9266 total kcals 1-1.2 g protein/kg 63-76 g total protein 25-30 mL/kg 2205-3877 total fluid mLs NUTRITION DIAGNOSIS: Altered nutrition related lab values R/T h/o ETOH abuse, clinical condition as evidenced by elev T bili (1.6), elev LFTs, trend up, elev Na (155), febrile w/ Tmax 103.6. CURRENT DIET:NPO PO DIET RECOMMENDATIONS: CARDIAC (low na + low fat)/ texture per GOVERNMENT GAUGER ADDITIONAL RECOMMENDATIONS: * GOVERNMENT GAUGER evaluation prior to diet initiation for appropriate texture * Monitor NPO status, ability to feed (NPO DAY 5 TODAY) * Monitor lytes, replete as needed * Consider adjusting IVF: Na trending up, pt on 1/2NS * Calibrated bedscale wt for accurate CBW
[2019-07-29 12:00] VITALS: BP 115/77
--- NOTE | 2019-07-29 12:27 | NUR ---
CASE MANAGEMENT:REVIEW 07/29/19 SI: ALCOHOL WITHDRAWAL DELIRIUM TEMP SPIKE LAST NIGHT TO 100.6 98.4 101 19 112/78 92% ON RA NA+155 BUN+38 AST/ALT+1443/259 IS: IV ZOSYN Q8HRS IV BANANA BAG Q24 IV THIAMINE Q24 PROTONIX PO QD LIBRIUM PO TID RISPERDAL PO QHS IV ATIVAN Q4HRS PRN ANXIETY : TELEMETRY STATUS DCP: FROM HOME PLAN: SEEN BY FIELD SALES SPECIALIST ~ OUTPATIENT SUBSTANCE TREATMENT DC DROPLET PRECAUTIONS ~ COVID 19 NOT DETECTED
--- NOTE | 2019-07-29 12:33 | NUR ---
DISCHARGE PLANNING PATIENT IS FROM HOME AND WILL RETURN HOME ONCE AFEBRILE FOR 24HRS AND ELECTROLYTES NORMALIZE PHYSICAL THERAPY EVAL PENDING
[2019-07-29] MEDS ORDERED: Acetaminophen 650 MG SUPP RECTAL PRN ×2 (14:45→15:00)
--- NOTE | 2019-07-29 14:53 | NUR ---
NURSE NOTES: Dr. Kenney made aware patient no urine output. Bladder distended. Bladder scan 590 ML residual new order received to insert yarbrough. Noted and carried out.
[2019-07-29 16:00] VITALS: BP 114/78
--- NOTE | 2019-07-29 17:00 | Consultation ---
DATE OF CONSULTATION: 07/29/2019 INFECTIOUS DISEASES CONSULTATION CONSULTING PHYSICIAN: Samson Moore MD. REFERRING PHYSICIAN: Jourdan Kenney MD. REASON FOR CONSULTATION: Pneumonia. HISTORY OF PRESENTING ILLNESS: This is a 39-year-old gentleman with history of heavy alcohol use, questionable seizures, who came in with alcohol withdrawal. He is agitated, confused and unable to provide a history. An Infectious Diseases consultation has been obtained for possible pneumonia. PAST MEDICAL HISTORY: ? seizures. SOCIAL HISTORY: History of heavy alcohol use. FAMILY HISTORY: Unknown. REVIEW OF SYSTEMS: Unable to obtain currently. MEDICATIONS: As an inpatient he is on ibuprofen, Zosyn, lorazepam, Librium, Risperdal, clonidine, folic acid, multivitamin, thiamine, Protonix, Zofran, Tylenol. ALLERGIES: No known drug allergies. PHYSICAL EXAMINATION: VITAL SIGNS: Temperature of 98.4, T-max of 103.6, pulse of 94, respiratory rate 19, blood pressure 112/78, O2 saturation of 92%. HEENT: Pupils equally reactive to light and accommodation. Mouth appears clean without thrush. NECK: Supple. No adenopathy. No JVD. CARDIOVASCULAR: Regular rate and rhythm. No murmurs. LUNGS: Clear to auscultation bilaterally. No crackles. No wheezes. ABDOMEN: Soft and nontender. No organomegaly. EXTREMITIES: No cyanosis, no clubbing, no edema. LABORATORY AND DIAGNOSTIC DATA: White count 7.6, hemoglobin 12.7, hematocrit 38.4, MCV 93, platelet count of 93. Sodium 155, potassium 3.5, chloride 120, bicarb 19, BUN 38, creatinine 1.3, glucose 130, calcium 8. Total bilirubin 1.6, direct bilirubin 0.8, AST 1443, ALT 259, alkaline phosphatase 104, total protein 7.3, albumin 3.4. Lipase of 308. UA showing 0 to 2 white cells. COVID-19 testing from the nasopharynx is negative on 07/27/2019. On 07/24/2019 urine cultures are negative. Chest x-ray showing questionable patchy right upper lobe opacity, could represent infiltrate. Abdominal ultrasound showing liver demonstrates diffusely mildly increased echogenicity consistent with diffuse hepatocellular disease, most likely fatty changes, negative for gallstones or dilated ducts. ASSESSMENT: This is a 39-year-old gentleman with history of heavy alcohol use, who comes in with possible seizures and is found to have. 1. Likely aspiration pneumonia. COVID-19 test is negative. 2. Thrombocytopenia. 3. Elevated liver function tests. PLAN: 1. Continue Zosyn. 2. We will order sputum for Gram stain and culture. 3. We will follow up cultures and adjust antibiotics accordingly. I would like to thank, Dr. Kenney for this consultation. Samson Moore M.D. DR: Chayo JOB#: [id number] CC: Jourdan Kenney M.D.
[2019-07-29] MEDS: LORazepam Inj 2mg/ml 1ml IV PRN (17:02)
--- NOTE | 2019-07-29 19:30 | NUR ---
HAND-OFF: Report given to aBr Caicedo. Plan of care endorsed.
[2019-07-29 20:00] VITALS: BP 139/68
--- NOTE | 2019-07-29 20:07 | NUR ---
NURSE NOTES: Received pt from FLORI Ni. Pt asleep but easily arrousable. Bed in lowest position. Bueno draining. Restraints on. Call light within reach. Will continue to monitor.
--- NOTE | 2019-07-29 20:09 | General Progress Note ---
Assessment/Plan Problem List: (1) Altered mental status ICD Codes: R41.82 - Altered mental status SNOMED: 991974211 (2) Acute hyperactive alcohol withdrawal delirium ICD Codes: F10.231 - Alcohol dependence with withdrawal delirium SNOMED: 5125102, 10062095, 72444520666299247 Status: stable, not improved Assessment/Plan: ivf adjusted monitor na abx per id vitamin supplements iv po ativan/librium Subjective ROS Limited/Unobtainable: Yes Constitutional: Reports: fever, malaise, weakness HEENT: Reports: no symptoms Cardiovascular: Reports: no symptoms Respiratory: Reports: no symptoms Gastrointestinal/Abdominal: Reports: no symptoms Genitourinary: Reports: no symptoms Neurologic/Psychiatric: Reports: anxiety, emotional problems Endocrine: Reports: no symptoms Hematologic/Lymphatic: Reports: no symptoms Allergies: Coded Allergies: No Known Allergies (Unverified , 01/06/13) All Systems: reviewed and negative except above Subjective still agitated and confused. had some low grade temps. no cough. +hallucination Objective Last 24 Hour Vital Signs Date Time Temp Pulse Resp B/P (MAP) Pulse Ox O2 Delivery O2 Flow Rate FiO2 07/29/19 17:34 100.1 07/29/19 16:00 101.0 89 19 114/78 (90) 96 07/29/19 14:13 100.5 07/29/19 12:00 100.5 86 18 115/77 (90) 94 07/29/19 09:00 Room Air 07/29/19 08:00 98.4 94 19 112/78 (89) 92 07/29/19 04:00 98.7 101 19 119/83 (95) 94 07/29/19 00:00 105 07/28/19 23:45 100.6 110 20 123/80 (94) 94 07/28/19 21:00 Room Air Laboratory Tests 07/29/19 06:32: White Blood Count 7.6, Red Blood Count 4.12L, Hemoglobin 12.7L, Hematocrit 38.4L , Mean Corpuscular Volume 93, Mean Corpuscular Hemoglobin 30.8, Mean Corpuscular Hemoglobin Concent 33.1, Red Cell Distribution Width 13.9, Platelet Count 93L, Mean Platelet Volume 7.5, Neutrophils (%) (Auto) , Lymphocytes (%) ( Auto) , Monocytes (%) (Auto) , Eosinophils (%) (Auto) , Basophils (%) (Auto) , Differential Total Cells Counted 100, Neutrophils % (Manual) 69, Lymphocytes % ( Manual) 21, Monocytes % (Manual) 10, Eosinophils % (Manual) 0, Basophils % ( Manual) 0, Band Neutrophils 0, Platelet Estimate DecreasedL, Platelet Morphology Normal, Red Blood Cell Morphology Normal, Sodium Level 155H, Potassium Level 3.5, Chloride Level 120H, Carbon Dioxide Level 19L, Anion Gap 17H, Blood Urea Nitrogen 38H, Creatinine 1.3, Estimat Glomerular Filtration Rate > 60, Glucose Level 130H, Calcium Level 8.0L, Total Bilirubin 1.6H, Direct Bilirubin 0.8H, Aspartate Amino Transf (AST/SGOT) 1443H, Alanine Aminotransferase (ALT/SGPT) 259H, Alkaline Phosphatase 104, Total Protein 7.3, Albumin 3.4, Globulin 3.9, Albumin/Globulin Ratio 0.9L Height (Feet): 5 Height (Inches): 4.00 Weight (Pounds): 136 General Appearance: WD/WN, confused Cardiovascular: regular rhythm Respiratory/Chest: lungs clear Abdomen: non tender, soft Edema: no edema noted Arm (L), no edema noted Arm (R), no edema noted Leg (L), no edema noted Leg (R), no edema noted Pedal (L), no edema noted Pedal (R), no edema noted Generalized Jourdan Kenney MD Jul 29, 2019 20:09
[2019-07-29] MEDS: Potassium Chloride 10 MEQ in D5W 1000ml 1,000 ML IV SCH (21:00)
--- NOTE | 2019-07-29 23:40 | NUR ---
NURSE NOTES: Received report from FLORI Caicedo. Pt is awake, lying semi-clemens's; a little agitated. No signs of acute distress noted. AOx1; unable to make needs known. Checked IV sites, lines, and rates; patent and running. Soft restraints noted. Bueno noted; patent and draining. Bruising noted on bilateral arms. No infiltration or bleeding noted. Bed at lowest position. Brakes on. Siderails up x2 and padded. Call light within reach. Will continue to monitor.
[2019-07-30] VITALS: BP 141/82
[2019-07-30] MEDS: LORazepam Inj 2mg/ml 1ml IV PRN ×2 (00:43→05:38)
[2019-07-30] MEDS: Potassium Chloride 10 MEQ in D5W 1000ml 1,000 ML IV SCH ×4 (02:37→21:03)
[2019-07-30 04:00] VITALS: BP 127/81
[2019-07-30] MEDS: Piperacillin/Tazobactam 3.375 GM in NS 110 ML IVPB SCH ×3 (05:07→21:05)
[2019-07-30 05:59] LABS: ALANINE AMINOTRANSFERASE 294 U/L (12-78); ALBUMIN 3.1 G/DL (3.4-5.0); ALBUMIN/GLOBULIN RATIO 0.8 (1.0-2.7); ALKALINE PHOSPHATASE 93 U/L (46-116); ANION GAP 13 mmol/L (5-15); ASPARTATE AMINO TRANSFERASE 1401 U/L (15-37); BILIRUBIN,TOTAL 1.6 MG/DL (0.2-1.0); BLOOD UREA NITROGEN 17 mg/dL (7-18); CALCIUM 8.5 MG/DL (8.5-10.1); CARBON DIOXIDE 21 MMOL/L (21-32); CHLORIDE 122 MMOL/L (98-107); CREATININE 0.8 MG/DL (0.55-1.30); POTASSIUM 3.6 MMOL/L (3.5-5.1); SODIUM 156 MMOL/L (136-145)
[2019-07-30 06:43] LABS: BILIRUBIN,DIRECT 0.6 MG/DL (0.0-0.3)
--- NOTE | 2019-07-30 07:10 | NUR ---
HAND-OFF: Report given to FLORI Driver. Pt is sleeping and in stable condition. Plan of care endorsed.
--- NOTE | 2019-07-30 07:32 | NUR ---
NURSE NOTES: Received pt from FLORI Henry. Pt is in bed asleep. . Bilateral soft restraints on. Bruising noted on bilateral arms. Bueno intact and draining. Fall precaution, aspiration precaution and seizure precaution in place. Sign on the door, bed alarm is on, side rails padded,call light within reach, bed in low and locked position. Will do frequent rounds and continue to monitor pt for safety.
[2019-07-30 08:35] VITALS: BP 114/71
[2019-07-30] MEDS ORDERED: Acetaminophen 650 MG SUPP RECTAL PRN (09:50)
[2019-07-30] MEDS: Folic Acid 1 MG, Magnesium Sulfate 2,000 MG, Multivitamin - 12 Injection 10 ML in Sodiu... IV SCH (09:54)
[2019-07-30] MEDS: Thiamine 100mg in D5W 55ml IVPB SCH (09:54)
[2019-07-30] MEDS: chlordiazePOXIDE 25mg Cap ORAL SCH ×3 (09:58→17:35)
--- NOTE | 2019-07-30 10:15 | General Progress Note ---
Assessment/Plan Problem List: (1) Altered mental status ICD Codes: R41.82 - Altered mental status SNOMED: 491586112 (2) Acute hyperactive alcohol withdrawal delirium ICD Codes: F10.231 - Alcohol dependence with withdrawal delirium SNOMED: 0374127, 60627096, [id number] Status: stable, not improved Assessment/Plan: ivf adjusted monitor na abx per id vitamin supplements iv po ativan/librium monitor lfts Subjective ROS Limited/Unobtainable: Yes Constitutional: Reports: fever HEENT: Reports: no symptoms Cardiovascular: Reports: no symptoms Respiratory: Reports: no symptoms Gastrointestinal/Abdominal: Reports: no symptoms Genitourinary: Reports: no symptoms Neurologic/Psychiatric: Reports: no symptoms Endocrine: Reports: no symptoms Hematologic/Lymphatic: Reports: no symptoms Allergies: Coded Allergies: No Known Allergies (Unverified , 01/06/13) All Systems: reviewed and negative except above Subjective still agitated and confused. had some low grade temps- trending down. no cough. +hallucination Objective Last 24 Hour Vital Signs Date Time Temp Pulse Resp B/P (MAP) Pulse Ox O2 Delivery O2 Flow Rate FiO2 07/30/19 08:35 100.8 100 20 114/71 (85) 94 07/30/19 04:00 99.0 98 16 127/81 (96) 94 07/30/19 00:00 99.3 98 18 141/82 (101) 94 07/29/19 21:00 Room Air 07/29/19 20:00 100.1 70 18 139/68 (91) 97 07/29/19 17:34 100.1 07/29/19 16:00 101.0 89 19 114/78 (90) 96 07/29/19 14:13 100.5 07/29/19 12:00 100.5 86 18 115/77 (90) 94 Laboratory Tests 07/30/19 04:45: Sodium Level 156H, Potassium Level 3.6, Chloride Level 122H, Carbon Dioxide Level 21, Anion Gap 13, Blood Urea Nitrogen 17, Creatinine 0.8, Estimat Glomerular Filtration Rate > 60, Glucose Level 124H, Calcium Level 8.5, Total Bilirubin 1.6H, Direct Bilirubin 0.6H, Aspartate Amino Transf (AST/SGOT) 1401H, Alanine Aminotransferase (ALT/SGPT) 294H, Alkaline Phosphatase 93, Total Protein 6.8, Albumin 3.1L, Globulin 3.7, Albumin/Globulin Ratio 0.8L Height (Feet): 5 Height (Inches): 4.00 Weight (Pounds): 136 Jourdan Kenney MD Jul 30, 2019 10:15
--- NOTE | 2019-07-30 10:27 | NUR ---
CASE MANAGEMENT:REVIEW 07/30/2019 SI: ALCOHOL WITHDRAWAL DELIRIUM TEMP SPIKE LAST NIGHT TO 100.6 100.8 100 20 114/71 94% ON RA NA+156 CL-122 BG 124 BUN+38 AST/ALT 1401/294 ((HEPATITIS PANEL-PENDING)) IS: IV ZOSYN Q8HRS IV BANANA BAG Q24 IV THIAMINE Q24 IV KCL@125ML/HR IV NS@125ML/HR PROTONIX PO QD LIBRIUM PO TID RISPERDAL PO QHS IV ATIVAN Q4HRS PRN ANXIETY \: TRANSFERRED FROM [facility] TO MED SURG STATUS DCP: FROM HOME PLAN: US ABD- hepatocellular disease MONITOR FOR FEVER HEPATITIS PANEL PENDING POSSIBLE ASPIRATION PNA MONITORING LIVER FUNCTIONS
[2019-07-30 12:13] VITALS: BP 110/64
--- NOTE | 2019-07-30 12:25 | Infectious Diseases Prog Note ---
Assessment/Plan Assessment/Plan A: 1. Likely aspiration pneumonia. COVID-19 test is negative. 2. Thrombocytopenia. 3. Alcoholic hepatitis 4. Alcohol dependence & withdrawal 5. Hypernatremia PLAN: 1. Continue Zosyn. 2. We will follow up cultures and adjust antibiotics accordingly. 3. f/u CXR Subjective ROS Limited/Unobtainable: Yes Constitutional: Reports: fever, other - Awot=592 Allergies: Coded Allergies: No Known Allergies (Unverified , 01/06/13) Objective Vital Signs Last 24 Hour Vital Signs Date Time Temp Pulse Resp B/P (MAP) Pulse Ox O2 Delivery O2 Flow Rate FiO2 07/30/19 12:13 99.8 76 20 110/64 (79) 96 07/30/19 09:00 Room Air 07/30/19 08:35 100.8 100 20 114/71 (85) 94 07/30/19 04:00 99.0 98 16 127/81 (96) 94 07/30/19 00:00 99.3 98 18 141/82 (101) 94 07/29/19 21:00 Room Air 07/29/19 20:00 100.1 70 18 139/68 (91) 97 07/29/19 17:34 100.1 07/29/19 16:00 101.0 89 19 114/78 (90) 96 07/29/19 14:13 100.5 Height (Feet): 5 Height (Inches): 4.00 Weight (Pounds): 136 General Appearance: no acute distress HEENT: mucous membranes moist Respiratory/Chest: lungs clear Cardiovascular: normal rate Abdomen: soft, non tender Extremities: no edema Neurologic/Psychiatric: other - sleeping Microbiology Date/Time Source Procedure Growth Status 07/28/19 16:25 Blood Blood Culture - Preliminary NO GROWTH AFTER 24 HOURS Resulted 07/28/19 16:10 Blood Blood Culture - Preliminary NO GROWTH AFTER 24 HOURS Resulted 07/27/19 17:00 Nasopharynx Coronavirus COVID-19 PCR ([facility]) - Final Complete Laboratory Tests Test 07/30/19 04:45 Sodium Level 156 MMOL/L (136-145) H Potassium Level 3.6 MMOL/L (3.5-5.1) Chloride Level 122 MMOL/L (98-107) H Carbon Dioxide Level 21 MMOL/L (21-32) Anion Gap 13 mmol/L (5-15) Blood Urea Nitrogen 17 mg/dL (7-18) Creatinine 0.8 MG/DL (0.55-1.30) Estimat Glomerular Filtration Rate > 60 mL/min (>60) Glucose Level 124 MG/DL (74-106) H Calcium Level 8.5 MG/DL (8.5-10.1) Total Bilirubin 1.6 MG/DL (0.2-1.0) H Direct Bilirubin 0.6 MG/DL (0.0-0.3) H Aspartate Amino Transf (AST/SGOT) 1401 U/L (15-37) H Alanine Aminotransferase (ALT/SGPT) 294 U/L (12-78) H Alkaline Phosphatase 93 U/L (46-116) Total Protein 6.8 G/DL (6.4-8.2) Albumin 3.1 G/DL (3.4-5.0) L Globulin 3.7 g/dL Albumin/Globulin Ratio 0.8 (1.0-2.7) L Acetaminophen Level < 2 MCG/ML (10-30) L Hepatitis A Antibody Total Pending Hepatitis B Surface Antigen Pending Hepatitis B Surface Antibody, Quant Pending Hepatitis C Antibody Pending Current Medications Medications (Trade) Dose Ordered Sig/Artem Route PRN Reason Start Time Stop Time Status Last Admin Dose Admin Acetaminophen (Tylenol) 650 mg Q4H PRN ORAL Mild Pain (Pain Scale 1-3) 07/30/19 09:50 08/29/19 09:49 Acetaminophen (Tylenol) 650 mg Q4H PRN RECTAL Mild Pain (Pain Scale 1-3) 07/30/19 09:50 08/29/19 09:49 Chlordiazepoxide (Librium) 50 mg TID ORAL 07/30/19 09:51 08/06/19 09:50 07/30/19 09:58 Clonidine HCl (Catapres Tab) 0.1 mg Q4H PRN ORAL For High Blood Pressure 07/30/19 09:50 10/28/19 09:49 Folic Acid 1 mg/ Magnesium Sulfate 2000 mg/ Multivitamins 10 ml/Sodium Chloride 1,014.2 ml @ 125 mls/ hr Q24H IV 07/31/19 09:00 08/24/19 08:59 Folic Acid 1 mg/ Magnesium Sulfate 2000 mg/ Multivitamins 10 ml/Sodium Chloride 1,014.2 ml @ 125 mls/ hr Q24H IV 07/25/19 09:00 07/30/19 23:59 07/30/19 09:54 Ibuprofen (Advil) 200 mg TIDPRN PRN ORAL fever 07/30/19 09:51 08/29/19 09:50 Lorazepam (Ativan 2mg/ml 1ml) 2 mg Q4H PRN IV For Anxiety 07/30/19 09:51 08/06/19 09:50 Ondansetron HCl (Zofran) 4 mg Q6H PRN IVP Nausea & Vomiting 07/30/19 09:51 08/29/19 09:50 Pantoprazole (Protonix) 40 mg DAILY@0630 ORAL 07/31/19 06:30 08/24/19 06:29 Piperacillin Sod/ Tazobactam Sod 3.375 gm/Sodium Chloride 110 ml @ 27.5 mls/hr EVERY 8 HOURS IVPB 07/30/19 14:00 08/01/19 11:59 Potassium Chloride 10 meq/ Dextrose 1,005 ml @ 125 mls/hr Q8H3M IV 07/30/19 13:00 08/29/19 12:59 Risperidone (RisperDAL) 1 mg BEDTIME ORAL 07/30/19 21:00 09/09/19 20:59 Thiamine HCl 100 mg/Dextrose 56 ml @ 112 mls/hr Q24H IVPB 07/31/19 09:00 08/24/19 08:59 Abrahan Urias MD Jul 30, 2019 12:25
[2019-07-30 16:00] VITALS: BP 115/60
--- NOTE | 2019-07-30 19:44 | NUR ---
NURSE NOTES: Received report from Bar Keen, pt is a/ox3, breaths regular unlabored on RA, denies any pain , pt has a swollen lower lip, no s/s of distress. Pt has Rt hand 22g and R upper arm 22g with i.v fluids running , patent and asymptomatic, bed in low locked position , side rails padded for seizure precaution and call light with in reach, will continue with plan of care
--- NOTE | 2019-07-30 19:46 | NUR ---
HAND-OFF: Report given to FLORI Estes.
[2019-07-30 20:00] VITALS: BP 120/74
[2019-07-31] VITALS: BP 118/71
--- NOTE | 2019-07-31 01:00 | Progress Note ---
DATE: 07/30/2019 SUBJECTIVE: The patient is calm, asleep, more manageable, arousable, and able to answer the questions. Alert and oriented times self, place, and situation. The patient has been on soft restraints. Discontinued the order. MENTAL STATUS EXAMINATION: The patient is alert and oriented times self, place. Mood is neutral. Affect is flat. Thought process is concrete. Thought content, no suicidal or homicidal ideation. Cognition is impaired. Insight and judgment impaired. ASSESSMENT: Alcohol dependence, delirium tremens. PLAN: 1. Continue risperidone. 2. Benzodiazepine. 3. Discontinue the soft restraints. 4. Continue current psychotropic medications. Willi Sherman M.D. DR: Jamshid JOB#: [id number] CC:
[2019-07-31] MEDS: Potassium Chloride 10 MEQ in D5W 1000ml 1,000 ML IV SCH ×3 (02:34→18:36)
[2019-07-31] MEDS: LORazepam Inj 2mg/ml 1ml IV PRN ×3 (02:47→21:12)
[2019-07-31 04:00] VITALS: BP 122/68
[2019-07-31] MEDS: Piperacillin/Tazobactam 3.375 GM in NS 110 ML IVPB SCH ×3 (05:44→21:12)
--- NOTE | 2019-07-31 07:29 | NUR ---
HAND-OFF: Report given to howard Campos.
[2019-07-31 07:34] LABS: ALANINE AMINOTRANSFERASE 252 U/L (12-78); ALBUMIN 2.7 G/DL (3.4-5.0); ALBUMIN/GLOBULIN RATIO 0.8 (1.0-2.7); ALKALINE PHOSPHATASE 81 U/L (46-116); ANION GAP 10 mmol/L (5-15); ASPARTATE AMINO TRANSFERASE 952 U/L (15-37); BLOOD UREA NITROGEN 12 mg/dL (7-18); CALCIUM 8.3 MG/DL (8.5-10.1); CARBON DIOXIDE 24 MMOL/L (21-32); CHLORIDE 114 MMOL/L (98-107); CREATININE 0.7 MG/DL (0.55-1.30); POTASSIUM 3.1 MMOL/L (3.5-5.1); SODIUM 148 MMOL/L (136-145)
[2019-07-31 08:00] VITALS: BP 114/75
--- NOTE | 2019-07-31 08:00 | NUR ---
NURSE NOTES: Received report from Meera RUBY, pt a/a/o laying in bed with no signs of distress or other issues at this time. however pt has episodes of confusion and hallucinations but is not agitated at this time, IV on the right upper arm patent running D5 NS@100ml/hr. call light within reach, bed in lowest position. side rales up x2. I will f/u as needed. - pt was able to tolerate breakfast with no s/s of n/v.
--- NOTE | 2019-07-31 08:48 | Diagnostic Imaging Report ---
Indication: Cough Technique: One view of the chest Comparison: none Findings: Lungs and pleural spaces are clear. Heart size is normal. No significant change Impression: No acute process
--- NOTE | 2019-07-31 09:09 | NUR ---
RADIOLOGY: PCXR COMPLETED 0815HRS. NF
[2019-07-31] MEDS: Thiamine HCl 100 MG in D5W 55 ML IVPB SCH (09:25)
[2019-07-31] MEDS: Folic Acid 1 MG, Magnesium Sulfate 2,000 MG, Multivitamin - 12 Injection 10 ML in Sodiu... IV SCH (09:25)
[2019-07-31] MEDS: chlordiazePOXIDE 25mg Cap ORAL SCH ×3 (09:25→18:00)
--- NOTE | 2019-07-31 10:26 | NUR ---
CASE MANAGEMENT:REVIEW 07/31/2019 SI: ALCOHOL WITHDRAWAL DELIRIUM TEMP SPIKE LAST NIGHT TO 100.6 99.0 73 19 118/71 96% ON RA NA+148 K+ 3.1 CL-114 BG 109 CA+ 8.3 AST/ALT 952/252 HEP A AB TOTAL (+) HEP Bs (-) HEP BS ANTIBODY QUANT <3.1 HEP C ANTIBODY 0.2 ALBUMIN 2.7 IS: IV ZOSYN Q8HRS IV BANANA BAG Q24 IV THIAMINE Q24 IV KCL@125ML/HR IV NS@125ML/HR PROTONIX PO QD LIBRIUM PO TID RISPERDAL PO QHS IV ATIVAN Q4HRS PRN ANXIETY \: TO 3E MED SURG STATUS DCP: FROM HOME PLAN: US ABD- hepatocellular disease MONITOR FOR FEVER POSSIBLE ASPIRATION PNA MONITORING LIVER FUNCTIONS - DECREASING CONT LEOS CARE CHEST X-RAY - NO ACUTE PROCESS
--- NOTE | 2019-07-31 10:46 | General Progress Note ---
Assessment/Plan Problem List: (1) Altered mental status ICD Codes: R41.82 - Altered mental status SNOMED: 547334101 (2) Acute hyperactive alcohol withdrawal delirium ICD Codes: F10.231 - Alcohol dependence with withdrawal delirium SNOMED: 7552573, 48487699, [id number] Status: stable, not improved Assessment/Plan: ivf adjusted monitor na replace k abx per id vitamin supplements iv po ativan/librium monitor lfts Subjective ROS Limited/Unobtainable: Yes Constitutional: Reports: malaise, weakness HEENT: Reports: no symptoms Cardiovascular: Reports: no symptoms Gastrointestinal/Abdominal: Reports: no symptoms Neurologic/Psychiatric: Reports: anxiety, emotional problems Endocrine: Reports: no symptoms Hematologic/Lymphatic: Reports: no symptoms Allergies: Coded Allergies: No Known Allergies (Unverified , 01/06/13) All Systems: reviewed and negative except above Subjective still agitated and confused. Objective Last 24 Hour Vital Signs Date Time Temp Pulse Resp B/P (MAP) Pulse Ox O2 Delivery O2 Flow Rate FiO2 07/31/19 08:00 98.6 73 16 114/75 (88) 96 07/31/19 04:00 97.5 71 16 122/68 (86) 95 07/31/19 00:00 99.0 73 19 118/71 (87) 96 07/30/19 21:00 Room Air 07/30/19 20:00 98.3 78 18 120/74 (89) 96 07/30/19 16:00 99.4 75 20 115/60 (78) 95 07/30/19 12:13 99.8 76 20 110/64 (79) 96 Intake and Output 07/30/19 07/31/19 19:00 07:00 Intake Total 1207.5 ml 400 ml Output Total 1000 ml Balance 1207.5 ml -600 ml Intake Oral 400 ml IV Total 1207.5 ml Output Urine Total 1000 ml Laboratory Tests 07/31/19 05:05: Sodium Level 148H, Potassium Level 3.1L, Chloride Level 114H, Carbon Dioxide Level 24, Anion Gap 10, Blood Urea Nitrogen 12, Creatinine 0.7, Estimat Glomerular Filtration Rate > 60, Glucose Level 109H, Calcium Level 8.3L, Total Bilirubin 1.0, Aspartate Amino Transf (AST/SGOT) 952H, Alanine Aminotransferase (ALT/SGPT) 252H, Alkaline Phosphatase 81, Total Protein 6.1L, Albumin 2.7L, Globulin 3.4, Albumin/Globulin Ratio 0.8L Height (Feet): 5 Height (Inches): 4.00 Weight (Pounds): 136 Jourdan Kenney MD Jul 31, 2019 10:46
[2019-07-31 12:00] VITALS: BP 117/78
--- NOTE | 2019-07-31 13:19 | NUR ---
P.T Note: P.T evaluation completed and tx initiated. Please refer to P.T evaluation for full report. Pt is alert, O x 4 , no c/o pain however presented generalized weakness compromising his balance and safety in performing his ADL/ functional mobilities. Pt able to perform bed mobilities w/o physical assist however needed MIN/CGA X 1 to transfer from OOB to chair/recliner. Pt ambulated with very unsteady gait for 100 ft and required the use of FWW, CGA x 1 and constant redirections for safe maneuvering of FWW during transitional movement/directional shifting. Skilled P.T service is warranted to improved strength and and mobility independence towards return to PLOF.
--- NOTE | 2019-07-31 14:43 | Infectious Diseases Prog Note ---
Assessment/Plan Assessment/Plan antibiotics : zosyn A 1. aspiration pneumonia COVID 19 negative 4.6.20 2. alcohol withdrawal 3. increased LFT improving 4. thrombocytopenia P 1. continue zosyn 2. will follow up cultures Subjective ROS Limited/Unobtainable: Yes Allergies: Coded Allergies: No Known Allergies (Unverified , 01/06/13) Objective Vital Signs Last 24 Hour Vital Signs Date Time Temp Pulse Resp B/P (MAP) Pulse Ox O2 Delivery O2 Flow Rate FiO2 07/31/19 12:00 99.0 69 18 117/78 (91) 95 07/31/19 09:00 Room Air 07/31/19 08:00 98.6 73 16 114/75 (88) 96 07/31/19 04:00 97.5 71 16 122/68 (86) 95 07/31/19 00:00 99.0 73 19 118/71 (87) 96 07/30/19 21:00 Room Air 07/30/19 20:00 98.3 78 18 120/74 (89) 96 07/30/19 16:00 99.4 75 20 115/60 (78) 95 Height (Feet): 5 Height (Inches): 4.00 Weight (Pounds): 136 Respiratory/Chest: lungs clear Cardiovascular: normal rate, regular rhythm, no gallop/murmur Abdomen: soft, non tender Extremities: no edema Microbiology Date/Time Source Procedure Growth Status 07/28/19 16:25 Blood Blood Culture - Preliminary NO GROWTH AFTER 48 HOURS Resulted 07/28/19 16:10 Blood Blood Culture - Preliminary NO GROWTH AFTER 48 HOURS Resulted Laboratory Tests Test 07/31/19 05:05 Sodium Level 148 MMOL/L (136-145) H Potassium Level 3.1 MMOL/L (3.5-5.1) L Chloride Level 114 MMOL/L (98-107) H Carbon Dioxide Level 24 MMOL/L (21-32) Anion Gap 10 mmol/L (5-15) Blood Urea Nitrogen 12 mg/dL (7-18) Creatinine 0.7 MG/DL (0.55-1.30) Estimat Glomerular Filtration Rate > 60 mL/min (>60) Glucose Level 109 MG/DL (74-106) H Calcium Level 8.3 MG/DL (8.5-10.1) L Total Bilirubin 1.0 MG/DL (0.2-1.0) Aspartate Amino Transf (AST/SGOT) 952 U/L (15-37) H Alanine Aminotransferase (ALT/SGPT) 252 U/L (12-78) H Alkaline Phosphatase 81 U/L (46-116) Total Protein 6.1 G/DL (6.4-8.2) L Albumin 2.7 G/DL (3.4-5.0) L Globulin 3.4 g/dL Albumin/Globulin Ratio 0.8 (1.0-2.7) L Current Medications Medications (Trade) Dose Ordered Sig/Artem Route PRN Reason Start Time Stop Time Status Last Admin Dose Admin Acetaminophen (Tylenol) 650 mg Q4H PRN ORAL Mild Pain (Pain Scale 1-3) 07/30/19 09:50 08/29/19 09:49 Acetaminophen (Tylenol) 650 mg Q4H PRN RECTAL Mild Pain (Pain Scale 1-3) 07/30/19 09:50 08/29/19 09:49 Chlordiazepoxide (Librium) 50 mg TID ORAL 07/30/19 09:51 08/06/19 09:50 07/31/19 12:08 Clonidine HCl (Catapres Tab) 0.1 mg Q4H PRN ORAL For High Blood Pressure 07/30/19 09:50 10/28/19 09:49 Folic Acid 1 mg/ Magnesium Sulfate 2000 mg/ Multivitamins 10 ml/Sodium Chloride 1,014.2 ml @ 125 mls/ hr Q24H IV 07/31/19 09:00 08/24/19 08:59 07/31/19 09:25 Ibuprofen (Advil) 200 mg TIDPRN PRN ORAL fever 07/30/19 09:51 08/29/19 09:50 Lorazepam (Ativan 2mg/ml 1ml) 2 mg Q4H PRN IV For Anxiety 07/30/19 09:51 08/06/19 09:50 07/31/19 13:49 Ondansetron HCl (Zofran) 4 mg Q6H PRN IVP Nausea & Vomiting 07/30/19 09:51 08/29/19 09:50 Pantoprazole (Protonix) 40 mg DAILY@0630 ORAL 07/31/19 06:30 08/24/19 06:29 07/31/19 05:44 Piperacillin Sod/ Tazobactam Sod 3.375 gm/Sodium Chloride 110 ml @ 27.5 mls/hr EVERY 8 HOURS IVPB 07/30/19 14:00 08/01/19 11:59 07/31/19 13:50 Potassium Chloride 10 meq/ Dextrose 1,005 ml @ 125 mls/hr Q8H3M IV 07/30/19 13:00 08/29/19 12:59 07/31/19 02:34 Risperidone (RisperDAL) 1 mg BEDTIME ORAL 07/30/19 21:00 09/09/19 20:59 07/30/19 21:03 Thiamine HCl 100 mg/Dextrose 56 ml @ 112 mls/hr Q24H IVPB 07/31/19 09:00 08/24/19 08:59 07/31/19 09:25 Samson Moore MD Jul 31, 2019 14:43
[2019-07-31 16:00] VITALS: BP 109/58
--- NOTE | 2019-07-31 19:00 | NUR ---
NURSE NOTES: Received report from Bar Chandler, pt is a/ox2, breaths regular unlabored on RA, denies any pain , pt has a swollen lower lip, no s/s of distress. Pt has R upper arm 22g with i.v fluids running , patent and asymptomatic, bed in low locked position , side rails padded for seizure precaution and call light with in reach, will continue with plan of care
--- NOTE | 2019-07-31 19:26 | NUR ---
HAND-OFF: Report given to Meera RUBY, pt in stable condition. - during my shift pt was agitated trying to put his Bueno ctah as well his IV line. RN medicated pt with Ativan as indicated by MD. then after pt was sleeping the rest of the shift. RN encouraged patient to eat but pt stated that he is not hungry. - pt had episodes of hallucinations. - RN spoke with pt's to give update. ([place] [phone]) I&O's Bueno cath out put: 1800ml
[2019-07-31 20:00] VITALS: BP 121/73
--- NOTE | 2019-07-31 20:49 | Psych Consult Progress Note ---
Psychiatry Progress Note Psychiatry Progress Note Medications Current Medications Medications (Trade) Dose Ordered Sig/Artem Route PRN Reason Start Time Stop Time Status Last Admin Dose Admin Acetaminophen (Tylenol) 650 mg Q4H PRN ORAL Mild Pain (Pain Scale 1-3) 07/30/19 09:50 08/29/19 09:49 Acetaminophen (Tylenol) 650 mg Q4H PRN RECTAL Mild Pain (Pain Scale 1-3) 07/30/19 09:50 08/29/19 09:49 Chlordiazepoxide (Librium) 50 mg TID ORAL 07/30/19 09:51 08/06/19 09:50 07/31/19 12:08 Clonidine HCl (Catapres Tab) 0.1 mg Q4H PRN ORAL For High Blood Pressure 07/30/19 09:50 10/28/19 09:49 Folic Acid 1 mg/ Magnesium Sulfate 2000 mg/ Multivitamins 10 ml/Sodium Chloride 1,014.2 ml @ 125 mls/ hr Q24H IV 07/31/19 09:00 08/24/19 08:59 07/31/19 09:25 Ibuprofen (Advil) 200 mg TIDPRN PRN ORAL fever 07/30/19 09:51 08/29/19 09:50 Lorazepam (Ativan 2mg/ml 1ml) 2 mg Q4H PRN IV For Anxiety 07/30/19 09:51 08/06/19 09:50 07/31/19 13:49 Ondansetron HCl (Zofran) 4 mg Q6H PRN IVP Nausea & Vomiting 07/30/19 09:51 08/29/19 09:50 Pantoprazole (Protonix) 40 mg DAILY@0630 ORAL 07/31/19 06:30 08/24/19 06:29 07/31/19 05:44 Piperacillin Sod/ Tazobactam Sod 3.375 gm/Sodium Chloride 110 ml @ 27.5 mls/hr EVERY 8 HOURS IVPB 07/30/19 14:00 08/03/19 13:59 07/31/19 13:50 Potassium Chloride 10 meq/ Dextrose 1,005 ml @ 125 mls/hr Q8H3M IV 07/30/19 13:00 08/29/19 12:59 07/31/19 18:36 Risperidone (RisperDAL) 1 mg BEDTIME ORAL 07/30/19 21:00 09/09/19 20:59 07/30/19 21:03 Thiamine HCl 100 mg/Dextrose 56 ml @ 112 mls/hr Q24H IVPB 07/31/19 09:00 08/24/19 08:59 07/31/19 09:25 Allergies: Coded Allergies: No Known Allergies (Unverified , 01/06/13) Objective Data Height (Feet): 5 Height (Inches): 4.00 Weight (Pounds): 136 Assessment/Plan Status: stable, not improved Assessment/Plan: 1. The patient will be started on Librium. 2. Ativan. 3. Risperidone. Willi Sherman MD Jul 31, 2019 20:49
[2019-08-01] VITALS: BP 114/66
[2019-08-01] MEDS: Potassium Chloride 10 MEQ in D5W 1000ml 1,000 ML IV SCH (02:56)
[2019-08-01 04:00] VITALS: BP 106/62
[2019-08-01] MEDS: LORazepam Inj 2mg/ml 1ml IV PRN ×2 (04:05→08:11)
[2019-08-01] MEDS: Piperacillin/Tazobactam 3.375 GM in NS 110 ML IVPB SCH ×3 (05:48→22:09)
--- NOTE | 2019-08-01 07:25 | NUR ---
NURSE NOTES: Report received from Meera RUBY, rounds made. Patient sleeping. No distress, respirations even/unlabored on RA. Lips swollen with scabs, under tongue, redness, skin intact. FC in place, draining dark y/cl urine. IVF (D5 NS + 10 KCL at 125 ml) and Zosyn infusing to BETSY, site asymptomatic. Seizure pads in place. Bed in lowest position,will continue to monitor. Addendum: 08/01/19 at 2004 by Martina Powell RN Oral mouth care/lip moisturizer applied.
--- NOTE | 2019-08-01 07:30 | NUR ---
HAND-OFF: Report given to FLORI Mack
[2019-08-01 07:43] LABS: ALANINE AMINOTRANSFERASE 260 U/L (12-78); ALBUMIN 2.9 G/DL (3.4-5.0); ALBUMIN/GLOBULIN RATIO 0.8 (1.0-2.7); ALKALINE PHOSPHATASE 109 U/L (46-116); ANION GAP 12 mmol/L (5-15); ASPARTATE AMINO TRANSFERASE 722 U/L (15-37); BILIRUBIN,TOTAL 1.1 MG/DL (0.2-1.0); BLOOD UREA NITROGEN 8 mg/dL (7-18); CALCIUM 8.6 MG/DL (8.5-10.1); CARBON DIOXIDE 24 MMOL/L (21-32); CHLORIDE 107 MMOL/L (98-107); CREATININE 0.8 MG/DL (0.55-1.30); POTASSIUM 3.2 MMOL/L (3.5-5.1); SODIUM 143 MMOL/L (136-145)
[2019-08-01 08:00] VITALS: BP 111/67
[2019-08-01 08:03] LABS: BILIRUBIN,DIRECT 0.5 MG/DL (0.0-0.3)
[2019-08-01] MEDS: chlordiazePOXIDE 25mg Cap ORAL SCH ×3 (08:55→18:39)
--- NOTE | 2019-08-01 08:55 | NUR ---
NURSE NOTES: Patient trying to get up out of bed, putting legs between side rails, pulling on FC, removing seizure pad. Reoriented patient to location and room. Patient continues to be agitated. Administered Ativan 2 mg IV at 0811. Patient continues to have agitation on and off. Right wrist restraint applied. Mariajose MARIE aware. Will continue to monitor.
--- NOTE | 2019-08-01 09:00 | NUR ---
NURSE NOTES: Dr. Kenney notified of K3.2, orders received for KCL 60 meq PO x1, will administer as ordered.
[2019-08-01] MEDS: Folic Acid 1 MG, Magnesium Sulfate 2,000 MG, Multivitamin - 12 Injection 10 ML in Sodiu... IV SCH (09:51)
[2019-08-01] MEDS: Thiamine HCl 100 MG in D5W 55 ML IVPB SCH (09:51)
[2019-08-01 12:00] VITALS: BP 120/68
--- NOTE | 2019-08-01 12:12 | General Progress Note ---
Assessment/Plan Problem List: (1) Altered mental status ICD Codes: R41.82 - Altered mental status SNOMED: 967207283 (2) Acute hyperactive alcohol withdrawal delirium ICD Codes: F10.231 - Alcohol dependence with withdrawal delirium SNOMED: 7117277, 65618547, [id number] Status: stable, not improved Assessment/Plan: ivf adjusted monitor na replace k abx per id vitamin supplements iv po ativan/librium monitor lfts/ammonia Subjective ROS Limited/Unobtainable: No Constitutional: Reports: malaise, weakness HEENT: Reports: no symptoms Cardiovascular: Reports: no symptoms Respiratory: Reports: no symptoms Gastrointestinal/Abdominal: Reports: no symptoms Genitourinary: Reports: no symptoms Neurologic/Psychiatric: Reports: anxiety, emotional problems Endocrine: Reports: no symptoms Hematologic/Lymphatic: Reports: anemia Allergies: Coded Allergies: No Known Allergies (Unverified , 01/06/13) All Systems: reviewed and negative except above Subjective still agitated and confused. na improving Objective Last 24 Hour Vital Signs Date Time Temp Pulse Resp B/P (MAP) Pulse Ox O2 Delivery O2 Flow Rate FiO2 08/01/19 09:25 98.8 08/01/19 08:00 100.0 97 18 111/67 (82) 94 08/01/19 04:00 98.2 77 18 106/62 (77) 95 08/01/19 00:00 98.8 85 18 114/66 (82) 95 07/31/19 21:00 Room Air 07/31/19 20:00 98.8 72 17 121/73 (89) 97 07/31/19 16:00 98.2 69 18 109/58 (75) 98 Intake and Output 07/31/19 08/01/19 19:00 07:00 Intake Total 500 ml 1450 ml Output Total 1500 ml 1400 ml Balance -1000 ml 50 ml Intake Oral 500 ml 200 ml IV Total 1250 ml Output Urine Total 1500 ml 1400 ml Laboratory Tests 08/01/19 05:15: Sodium Level 143, Potassium Level 3.2L, Chloride Level 107, Carbon Dioxide Level 24, Anion Gap 12, Blood Urea Nitrogen 8, Creatinine 0.8, Estimat Glomerular Filtration Rate > 60, Glucose Level 111H, Calcium Level 8.6, Total Bilirubin 1.1H, Direct Bilirubin 0.5H, Aspartate Amino Transf (AST/SGOT) 722H, Alanine Aminotransferase (ALT/SGPT) 260H, Alkaline Phosphatase 109, Total Protein 6.6, Albumin 2.9L, Globulin 3.7, Albumin/Globulin Ratio 0.8L Height (Feet): 5 Height (Inches): 4.00 Weight (Pounds): 136 Jourdan Kenney MD Aug 01, 2019 12:12
--- NOTE | 2019-08-01 12:19 | Infectious Diseases Prog Note ---
Assessment/Plan Assessment/Plan antibiotics : zosyn A 1. aspiration pneumonia COVID 19 negative 4.6.20 2. alcohol withdrawal 3. increased LFT improving 4. thrombocytopenia P 1. continue zosyn 2. will follow up cultures Subjective ROS Limited/Unobtainable: Yes Allergies: Coded Allergies: No Known Allergies (Unverified , 01/06/13) Objective Vital Signs Last 24 Hour Vital Signs Date Time Temp Pulse Resp B/P (MAP) Pulse Ox O2 Delivery O2 Flow Rate FiO2 08/01/19 09:25 98.8 08/01/19 08:00 100.0 97 18 111/67 (82) 94 08/01/19 04:00 98.2 77 18 106/62 (77) 95 08/01/19 00:00 98.8 85 18 114/66 (82) 95 07/31/19 21:00 Room Air 07/31/19 20:00 98.8 72 17 121/73 (89) 97 07/31/19 16:00 98.2 69 18 109/58 (75) 98 Height (Feet): 5 Height (Inches): 4.00 Weight (Pounds): 136 Respiratory/Chest: lungs clear Cardiovascular: normal rate, regular rhythm, no gallop/murmur Abdomen: soft, non tender Extremities: no edema Laboratory Tests Test 08/01/19 05:15 Sodium Level 143 MMOL/L (136-145) Potassium Level 3.2 MMOL/L (3.5-5.1) L Chloride Level 107 MMOL/L (98-107) Carbon Dioxide Level 24 MMOL/L (21-32) Anion Gap 12 mmol/L (5-15) Blood Urea Nitrogen 8 mg/dL (7-18) Creatinine 0.8 MG/DL (0.55-1.30) Estimat Glomerular Filtration Rate > 60 mL/min (>60) Glucose Level 111 MG/DL (74-106) H Calcium Level 8.6 MG/DL (8.5-10.1) Total Bilirubin 1.1 MG/DL (0.2-1.0) H Direct Bilirubin 0.5 MG/DL (0.0-0.3) H Aspartate Amino Transf (AST/SGOT) 722 U/L (15-37) H Alanine Aminotransferase (ALT/SGPT) 260 U/L (12-78) H Alkaline Phosphatase 109 U/L (46-116) Total Protein 6.6 G/DL (6.4-8.2) Albumin 2.9 G/DL (3.4-5.0) L Globulin 3.7 g/dL Albumin/Globulin Ratio 0.8 (1.0-2.7) L Current Medications Medications (Trade) Dose Ordered Sig/Artem Route PRN Reason Start Time Stop Time Status Last Admin Dose Admin Acetaminophen (Tylenol) 650 mg Q4H PRN ORAL Mild Pain (Pain Scale 1-3) 07/30/19 09:50 08/29/19 09:49 08/01/19 08:55 Acetaminophen (Tylenol) 650 mg Q4H PRN RECTAL Mild Pain (Pain Scale 1-3) 07/30/19 09:50 08/29/19 09:49 Chlordiazepoxide (Librium) 50 mg TID ORAL 07/30/19 09:51 08/06/19 09:50 08/01/19 08:55 Clonidine HCl (Catapres Tab) 0.1 mg Q4H PRN ORAL For High Blood Pressure 07/30/19 09:50 10/28/19 09:49 Dextrose/ Electrolytes 1,000 ml @ 100 mls/hr Q10H IV 08/01/19 12:15 08/31/19 12:14 UNV Folic Acid 1 mg/ Magnesium Sulfate 2000 mg/ Multivitamins 10 ml/Sodium Chloride 1,014.2 ml @ 125 mls/ hr Q24H IV 07/31/19 09:00 08/24/19 08:59 08/01/19 09:51 Ibuprofen (Advil) 200 mg TIDPRN PRN ORAL fever 07/30/19 09:51 08/29/19 09:50 Lorazepam (Ativan 2mg/ml 1ml) 2 mg Q4H PRN IV For Anxiety 07/30/19 09:51 08/06/19 09:50 08/01/19 08:11 Ondansetron HCl (Zofran) 4 mg Q6H PRN IVP Nausea & Vomiting 07/30/19 09:51 08/29/19 09:50 Pantoprazole (Protonix) 40 mg DAILY@0630 ORAL 07/31/19 06:30 08/24/19 06:29 08/01/19 05:49 Piperacillin Sod/ Tazobactam Sod 3.375 gm/Sodium Chloride 110 ml @ 27.5 mls/hr EVERY 8 HOURS IVPB 07/30/19 14:00 08/03/19 13:59 08/01/19 05:48 Risperidone (RisperDAL) 1 mg BEDTIME ORAL 07/30/19 21:00 09/09/19 20:59 07/31/19 21:11 Thiamine HCl 100 mg/Dextrose 56 ml @ 112 mls/hr Q24H IVPB 07/31/19 09:00 08/24/19 08:59 08/01/19 09:51 Samson Moore MD Aug 01, 2019 12:19
--- NOTE | 2019-08-01 12:26 | Infectious Diseases Prog Note ---
Assessment/Plan Assessment/Plan antibiotics : zosyn A 1. aspiration pneumonia COVID 19 negative 4.6.20 2. alcohol withdrawal 3. increased LFT improving 4. thrombocytopenia P 1. continue zosyn 1 more day 2. will follow up cultures Subjective ROS Limited/Unobtainable: Yes Allergies: Coded Allergies: No Known Allergies (Unverified , 01/06/13) Objective Vital Signs Last 24 Hour Vital Signs Date Time Temp Pulse Resp B/P (MAP) Pulse Ox O2 Delivery O2 Flow Rate FiO2 08/01/19 09:25 98.8 08/01/19 08:00 100.0 97 18 111/67 (82) 94 08/01/19 04:00 98.2 77 18 106/62 (77) 95 08/01/19 00:00 98.8 85 18 114/66 (82) 95 07/31/19 21:00 Room Air 07/31/19 20:00 98.8 72 17 121/73 (89) 97 07/31/19 16:00 98.2 69 18 109/58 (75) 98 Height (Feet): 5 Height (Inches): 4.00 Weight (Pounds): 136 Respiratory/Chest: lungs clear Cardiovascular: normal rate, regular rhythm, no gallop/murmur Abdomen: soft, non tender Extremities: other - + edema Laboratory Tests Test 08/01/19 05:15 Sodium Level 143 MMOL/L (136-145) Potassium Level 3.2 MMOL/L (3.5-5.1) L Chloride Level 107 MMOL/L (98-107) Carbon Dioxide Level 24 MMOL/L (21-32) Anion Gap 12 mmol/L (5-15) Blood Urea Nitrogen 8 mg/dL (7-18) Creatinine 0.8 MG/DL (0.55-1.30) Estimat Glomerular Filtration Rate > 60 mL/min (>60) Glucose Level 111 MG/DL (74-106) H Calcium Level 8.6 MG/DL (8.5-10.1) Total Bilirubin 1.1 MG/DL (0.2-1.0) H Direct Bilirubin 0.5 MG/DL (0.0-0.3) H Aspartate Amino Transf (AST/SGOT) 722 U/L (15-37) H Alanine Aminotransferase (ALT/SGPT) 260 U/L (12-78) H Alkaline Phosphatase 109 U/L (46-116) Total Protein 6.6 G/DL (6.4-8.2) Albumin 2.9 G/DL (3.4-5.0) L Globulin 3.7 g/dL Albumin/Globulin Ratio 0.8 (1.0-2.7) L Current Medications Medications (Trade) Dose Ordered Sig/Artem Route PRN Reason Start Time Stop Time Status Last Admin Dose Admin Acetaminophen (Tylenol) 650 mg Q4H PRN ORAL Mild Pain (Pain Scale 1-3) 07/30/19 09:50 08/29/19 09:49 08/01/19 08:55 Acetaminophen (Tylenol) 650 mg Q4H PRN RECTAL Mild Pain (Pain Scale 1-3) 07/30/19 09:50 08/29/19 09:49 Chlordiazepoxide (Librium) 50 mg TID ORAL 07/30/19 09:51 08/06/19 09:50 08/01/19 08:55 Clonidine HCl (Catapres Tab) 0.1 mg Q4H PRN ORAL For High Blood Pressure 07/30/19 09:50 10/28/19 09:49 Dextrose/ Electrolytes 1,000 ml @ 100 mls/hr Q10H IV 08/01/19 13:30 08/31/19 13:29 Folic Acid 1 mg/ Magnesium Sulfate 2000 mg/ Multivitamins 10 ml/Sodium Chloride 1,014.2 ml @ 125 mls/ hr Q24H IV 07/31/19 09:00 08/24/19 08:59 08/01/19 09:51 Ibuprofen (Advil) 200 mg TIDPRN PRN ORAL fever 07/30/19 09:51 08/29/19 09:50 Lorazepam (Ativan 2mg/ml 1ml) 2 mg Q4H PRN IV For Anxiety 07/30/19 09:51 08/06/19 09:50 08/01/19 08:11 Ondansetron HCl (Zofran) 4 mg Q6H PRN IVP Nausea & Vomiting 07/30/19 09:51 08/29/19 09:50 Pantoprazole (Protonix) 40 mg DAILY@0630 ORAL 07/31/19 06:30 08/24/19 06:29 08/01/19 05:49 Piperacillin Sod/ Tazobactam Sod 3.375 gm/Sodium Chloride 110 ml @ 27.5 mls/hr EVERY 8 HOURS IVPB 07/30/19 14:00 08/03/19 13:59 08/01/19 05:48 Risperidone (RisperDAL) 1 mg BEDTIME ORAL 07/30/19 21:00 09/09/19 20:59 07/31/19 21:11 Thiamine HCl 100 mg/Dextrose 56 ml @ 112 mls/hr Q24H IVPB 07/31/19 09:00 08/24/19 08:59 08/01/19 09:51 Samson Moore MD Aug 01, 2019 12:26
[2019-08-01] MEDS: D5 1/2NS w/KCl 20mEq 1,000 ML IV SCH ×2 (14:28→23:30)
--- NOTE | 2019-08-01 16:21 | NUR ---
PT Note Treatment on hold today per nursing advice due to patient's restlessness.
[2019-08-01 16:44] VITALS: BP 126/72
[2019-08-01] MEDS ORDERED: Tubing IV Secondary IV ONE (16:47)
--- NOTE | 2019-08-01 19:26 | NUR ---
HAND-OFF: Report given to Liz RUBY, rounds made. Patient calm/stable.
--- NOTE | 2019-08-01 20:07 | NUR ---
ERICKA NOTE: Met pt in bed, persian speaker. No outward s/s of distress noted. Breathing pattern is even and unlabored on RA. Soft restraints in place on the R wrist. Pt is calm currently. Iv, BETSY abnd JAYMIE in place, patent. Bueno in place, draining to gravity. Urine is yellow with no sediment noted. All due meds will be given. Bed at lowest level. Pt will continue to be monitored.
[2019-08-02] VITALS: BP 140/78
[2019-08-02] MEDS: LORazepam Inj 2mg/ml 1ml IV PRN ×2 (00:32→16:15)
[2019-08-02 04:00] VITALS: BP 152/82
--- NOTE | 2019-08-02 04:05 | NUR ---
NURSES NOTE: Welfare checks done q2h to assure pt safety in L and R soft restraints. Pt offered water q2h. No outward s/s of distress noted. BUE color is appropriate, capillary refill <3 seconds. Pt will be monitored.
[2019-08-02] MEDS: Piperacillin/Tazobactam 3.375 GM in NS 110 ML IVPB SCH ×2 (06:05→13:51)
[2019-08-02 06:14] LABS: ALANINE AMINOTRANSFERASE 242 U/L (12-78); ALBUMIN 2.9 G/DL (3.4-5.0); ALBUMIN/GLOBULIN RATIO 0.8 (1.0-2.7); ALKALINE PHOSPHATASE 118 U/L (46-116); ANION GAP 10 mmol/L (5-15); ASPARTATE AMINO TRANSFERASE 527 U/L (15-37); BILIRUBIN,TOTAL 0.8 MG/DL (0.2-1.0); BLOOD UREA NITROGEN 6 mg/dL (7-18); CALCIUM 8.9 MG/DL (8.5-10.1); CARBON DIOXIDE 23 MMOL/L (21-32); CHLORIDE 107 MMOL/L (98-107); CREATININE 0.6 MG/DL (0.55-1.30); POTASSIUM 3.7 MMOL/L (3.5-5.1); SODIUM 140 MMOL/L (136-145)
--- NOTE | 2019-08-02 07:30 | NUR ---
NURSE NOTES: ASLEEP. IV INFUSING. IN NO APPARENT DITRESS.
--- NOTE | 2019-08-02 07:41 | NUR ---
HAND OFF: Report given to Flor. Robert crowe.
[2019-08-02 08:00] VITALS: BP 108/73
[2019-08-02] MEDS: chlordiazePOXIDE 25mg Cap ORAL SCH ×3 (08:41→17:34)
--- NOTE | 2019-08-02 09:11 | General Progress Note ---
Assessment/Plan Problem List: (1) Altered mental status ICD Codes: R41.82 - Altered mental status SNOMED: 400768434 (2) Acute hyperactive alcohol withdrawal delirium ICD Codes: F10.231 - Alcohol dependence with withdrawal delirium SNOMED: 9696870, 60167064, [id number] Status: stable, not improved Assessment/Plan: ivf adjusted added lactulose abx per id vitamin supplements iv po ativan/librium monitor lfts/ammonia Subjective ROS Limited/Unobtainable: No Constitutional: Reports: malaise, weakness HEENT: Reports: no symptoms Cardiovascular: Reports: no symptoms Respiratory: Reports: no symptoms Gastrointestinal/Abdominal: Reports: no symptoms Genitourinary: Reports: no symptoms Neurologic/Psychiatric: Reports: anxiety, emotional problems Endocrine: Reports: no symptoms Hematologic/Lymphatic: Reports: no symptoms Allergies: Coded Allergies: No Known Allergies (Unverified , 01/06/13) All Systems: reviewed and negative except above Subjective still agitated and confused. na better. ammonia elevated Objective Last 24 Hour Vital Signs Date Time Temp Pulse Resp B/P (MAP) Pulse Ox O2 Delivery O2 Flow Rate FiO2 08/02/19 04:00 98.4 85 17 152/82 (105) 95 08/02/19 00:00 98.7 90 18 140/78 (98) 99 08/01/19 21:00 Room Air 08/01/19 16:44 98.5 80 16 126/72 (90) 96 08/01/19 12:00 99.3 82 16 120/68 (85) 97 08/01/19 09:25 98.8 08/01/19 09:25 98.8 Intake and Output 08/01/19 08/02/19 19:00 07:00 Intake Total 2100 ml 100 ml Output Total 1250 ml Balance 850 ml 100 ml Intake Oral 500 ml IV Total 1600 ml 100 ml Output Urine Total 1250 ml # Bowel Movements 2 1 Laboratory Tests 08/02/19 05:10: Sodium Level 140, Potassium Level 3.7, Chloride Level 107, Carbon Dioxide Level 23, Anion Gap 10, Blood Urea Nitrogen 6L, Creatinine 0.6, Estimat Glomerular Filtration Rate > 60, Glucose Level 108H, Calcium Level 8.9, Total Bilirubin 0.8 , Aspartate Amino Transf (AST/SGOT) 527H, Alanine Aminotransferase (ALT/SGPT) 242H, Alkaline Phosphatase 118H, Ammonia 48H, Total Protein 6.7, Albumin 2.9L, Globulin 3.8, Albumin/Globulin Ratio 0.8L Height (Feet): 5 Height (Inches): 4.00 Weight (Pounds): 136 General Appearance: WD/WN, confused Cardiovascular: regular rhythm Respiratory/Chest: lungs clear Abdomen: soft Edema: no edema noted Arm (L), no edema noted Arm (R), no edema noted Leg (L), no edema noted Leg (R), no edema noted Pedal (L), no edema noted Pedal (R), no edema noted Generalized Jourdan Kenney MD Aug 02, 2019 09:11
[2019-08-02] MEDS: Lactulose 20gm/30ml UDC ORAL SCH ×3 (09:15→17:34)
[2019-08-02] MEDS: Folic Acid 1 MG, Magnesium Sulfate 2,000 MG, Multivitamin - 12 Injection 10 ML in Sodiu... IV SCH (09:29)
[2019-08-02] MEDS: Thiamine HCl 100 MG in D5W 55 ML IVPB SCH (09:29)
[2019-08-02] MEDS: D5 1/2NS w/KCl 20mEq 1,000 ML IV SCH ×2 (09:30→17:56)
[2019-08-02 12:00] VITALS: BP 116/81
--- NOTE | 2019-08-02 14:08 | Infectious Diseases Prog Note ---
Assessment/Plan Assessment/Plan A: 1. Likely aspiration pneumonia. COVID-19 test is negative. 2. Thrombocytopenia. 3. Alcoholic hepatitis 4. Alcohol dependence & withdrawal 5. Hypernatremia PLAN: 1. Discontinue Zosyn. 2. Check hepatis A IgM Subjective ROS Limited/Unobtainable: Yes Constitutional: Reports: no symptoms Respiratory: Reports: no symptoms Cardiovascular: Reports: no symptoms Gastrointestinal/Abdominal: Reports: no symptoms Neurologic: Reports: other - on restraint Allergies: Coded Allergies: No Known Allergies (Unverified , 01/06/13) Objective Vital Signs Last 24 Hour Vital Signs Date Time Temp Pulse Resp B/P (MAP) Pulse Ox O2 Delivery O2 Flow Rate FiO2 08/02/19 09:00 Room Air 08/02/19 08:00 99.2 86 20 108/73 (85) 96 08/02/19 04:00 98.4 85 17 152/82 (105) 95 08/02/19 00:00 98.7 90 18 140/78 (98) 99 08/01/19 21:00 Room Air 08/01/19 16:44 98.5 80 16 126/72 (90) 96 Height (Feet): 5 Height (Inches): 4.00 Weight (Pounds): 136 General Appearance: no acute distress HEENT: other - dry mouth Respiratory/Chest: lungs clear Cardiovascular: normal rate Abdomen: soft, non tender Extremities: no edema Neurologic/Psychiatric: alert, responsive Laboratory Tests Test 08/02/19 05:10 Sodium Level 140 MMOL/L (136-145) Potassium Level 3.7 MMOL/L (3.5-5.1) Chloride Level 107 MMOL/L (98-107) Carbon Dioxide Level 23 MMOL/L (21-32) Anion Gap 10 mmol/L (5-15) Blood Urea Nitrogen 6 mg/dL (7-18) L Creatinine 0.6 MG/DL (0.55-1.30) Estimat Glomerular Filtration Rate > 60 mL/min (>60) Glucose Level 108 MG/DL (74-106) H Calcium Level 8.9 MG/DL (8.5-10.1) Total Bilirubin 0.8 MG/DL (0.2-1.0) Aspartate Amino Transf (AST/SGOT) 527 U/L (15-37) H Alanine Aminotransferase (ALT/SGPT) 242 U/L (12-78) H Alkaline Phosphatase 118 U/L (46-116) H Ammonia 48 umol/L (11-32) H Total Protein 6.7 G/DL (6.4-8.2) Albumin 2.9 G/DL (3.4-5.0) L Globulin 3.8 g/dL Albumin/Globulin Ratio 0.8 (1.0-2.7) L Current Medications Medications (Trade) Dose Ordered Sig/Artem Route PRN Reason Start Time Stop Time Status Last Admin Dose Admin Acetaminophen (Tylenol) 650 mg Q4H PRN ORAL Mild Pain (Pain Scale 1-3) 07/30/19 09:50 08/29/19 09:49 08/01/19 08:55 Acetaminophen (Tylenol) 650 mg Q4H PRN RECTAL Mild Pain (Pain Scale 1-3) 07/30/19 09:50 08/29/19 09:49 Chlordiazepoxide (Librium) 50 mg TID ORAL 07/30/19 09:51 08/06/19 09:50 08/02/19 12:47 Clonidine HCl (Catapres Tab) 0.1 mg Q4H PRN ORAL For High Blood Pressure 07/30/19 09:50 10/28/19 09:49 Dextrose/ Electrolytes 1,000 ml @ 100 mls/hr Q10H IV 08/01/19 13:30 08/31/19 13:29 08/01/19 23:30 Folic Acid 1 mg/ Magnesium Sulfate 2000 mg/ Multivitamins 10 ml/Sodium Chloride 1,014.2 ml @ 125 mls/ hr Q24H IV 07/31/19 09:00 08/24/19 08:59 08/02/19 09:29 Ibuprofen (Advil) 200 mg TIDPRN PRN ORAL fever 07/30/19 09:51 08/29/19 09:50 Lactulose (Cephulac) 20 gm THREE TIMES A DAY ORAL 08/02/19 09:15 09/01/19 09:14 Lorazepam (Ativan 2mg/ml 1ml) 2 mg Q4H PRN IV For Anxiety 07/30/19 09:51 08/06/19 09:50 08/02/19 00:32 Ondansetron HCl (Zofran) 4 mg Q6H PRN IVP Nausea & Vomiting 07/30/19 09:51 08/29/19 09:50 Pantoprazole (Protonix) 40 mg DAILY@0630 ORAL 07/31/19 06:30 08/24/19 06:29 08/02/19 06:07 Piperacillin Sod/ Tazobactam Sod 3.375 gm/Sodium Chloride 110 ml @ 27.5 mls/hr EVERY 8 HOURS IVPB 07/30/19 14:00 08/03/19 13:59 08/02/19 13:51 Risperidone (RisperDAL) 1 mg BEDTIME ORAL 07/30/19 21:00 09/09/19 20:59 08/01/19 22:09 Thiamine HCl 100 mg/Dextrose 56 ml @ 112 mls/hr Q24H IVPB 07/31/19 09:00 08/24/19 08:59 08/02/19 09:29 Abrahan Urias MD Aug 02, 2019 14:08
[2019-08-02 16:00] VITALS: BP 120/74
--- NOTE | 2019-08-02 19:00 | NUR ---
NURSE NOTES: ASLEEP. IN NO APPARENT DISTRESS.
--- NOTE | 2019-08-02 19:28 | NUR ---
HAND-OFF: Report given to oren farnsworth rn.
[2019-08-02 20:00] VITALS: BP 153/74
--- NOTE | 2019-08-02 20:10 | NUR ---
NURSES NOTE: Pt in bed, sleeping, appears comfortable. VS takes. Stable. Restraints, L and R wrist taken off as pt is not displaying behavior that is a threat to safety. Iv access noted, no s/s of infection. Bueno in place, draining without incident. Bed at lowest level, pt will continue to be monitored.l
[2019-08-03] VITALS: BP 144/76
[2019-08-03] MEDS: LORazepam Inj 2mg/ml 1ml IV PRN (02:28)
[2019-08-03 04:00] VITALS: BP 116/64
[2019-08-03] MEDS: D5 1/2NS w/KCl 20mEq 1,000 ML IV SCH ×2 (05:37→17:53)
--- NOTE | 2019-08-03 07:08 | NUR ---
NURSES NOTE: Welfare checks done q2h to assure pt safety in L and R soft restraints. At apprx 2200 pt was taken off restraints. No safety issues, or distruptive behavior noted NOC shift so pt remained without restraints. No outward s/s of distress noted. Pt was monitored and tolerated being without soft restraints well.
--- NOTE | 2019-08-03 07:40 | General Progress Note ---
Assessment/Plan Problem List: (1) Altered mental status ICD Codes: R41.82 - Altered mental status SNOMED: 794508846 (2) Acute hyperactive alcohol withdrawal delirium ICD Codes: F10.231 - Alcohol dependence with withdrawal delirium SNOMED: 5131488, 14192953, [id number] Status: stable, not improved Assessment/Plan: ivf adjusted added lactulose abx per id vitamin supplements iv po ativan/librium monitor lfts/ammonia Subjective ROS Limited/Unobtainable: No Constitutional: Reports: malaise, weakness HEENT: Reports: no symptoms Cardiovascular: Reports: no symptoms Respiratory: Reports: no symptoms Gastrointestinal/Abdominal: Reports: no symptoms Genitourinary: Reports: no symptoms Neurologic/Psychiatric: Reports: no symptoms Endocrine: Reports: no symptoms Hematologic/Lymphatic: Reports: no symptoms Allergies: Coded Allergies: No Known Allergies (Unverified , 01/06/13) All Systems: reviewed and negative except above Subjective less agitated. no events. no fevers. Objective Last 24 Hour Vital Signs Date Time Temp Pulse Resp B/P (MAP) Pulse Ox O2 Delivery O2 Flow Rate FiO2 08/03/19 04:00 98.4 65 18 116/64 (81) 95 08/03/19 00:36 98.4 08/03/19 00:00 99.8 85 18 144/76 (98) 97 08/02/19 21:00 Room Air 08/02/19 20:00 99.7 81 19 153/74 (100) 97 08/02/19 16:00 98.0 83 18 120/74 (89) 94 08/02/19 12:00 98.9 91 20 116/81 (93) 96 08/02/19 09:00 Room Air 08/02/19 08:00 99.2 86 20 108/73 (85) 96 Intake and Output 08/02/19 08/03/19 19:00 07:00 Intake Total 1918.5 ml Output Total 1800 ml Balance 118.5 ml Intake Oral 500 ml IV Total 1418.5 ml Output Urine Total 1800 ml # Bowel Movements 1 Laboratory Tests 08/03/19 04:50: Hepatitis A IgM Antibody [Pending] Height (Feet): 5 Height (Inches): 4.00 Weight (Pounds): 136 General Appearance: WD/WN, alert Neck: supple Cardiovascular: regular rhythm Respiratory/Chest: lungs clear Abdomen: normal bowel sounds, non tender, soft, no organomegaly Edema: no edema noted Arm (L), no edema noted Arm (R), no edema noted Leg (L), no edema noted Leg (R), no edema noted Pedal (L), no edema noted Pedal (R), no edema noted Generalized Jourdan Kenney MD Aug 03, 2019 07:40
[2019-08-03 08:00] VITALS: BP 95/57
--- NOTE | 2019-08-03 08:00 | NUR ---
NURSE NOTES: Received report Lukas RUBY, pt a/a/o with episodes of confusion, seating in chair with no signs of distress or other issues at this time. pt has an IV on right upper arm gauge#20 running D5 1/2 NS + 20mEq@100ml/hr. no skin issues. pt able to ambulate with staff assistance pt has unsteady gait. call light within reach, bed in lowest position. side rales up x2. I will f/u as needed.
--- NOTE | 2019-08-03 08:05 | NUR ---
HAND OFF: Report given to FLORI Chandler. Pt in stable condition.
[2019-08-03] MEDS: Folic Acid 1 MG, Magnesium Sulfate 2,000 MG, Multivitamin - 12 Injection 10 ML in Sodiu... IV SCH (08:51)
[2019-08-03] MEDS: Lactulose 20gm/30ml UDC ORAL SCH ×3 (08:52→17:47)
[2019-08-03] MEDS: chlordiazePOXIDE 25mg Cap ORAL SCH ×3 (08:52→17:47)
[2019-08-03] MEDS: Thiamine HCl 100 MG in D5W 55 ML IVPB SCH (08:52)
[2019-08-03 12:00] VITALS: BP 95/62
--- NOTE | 2019-08-03 12:06 | Infectious Diseases Prog Note ---
Assessment/Plan Assessment/Plan antibiotics : none A 1. aspiration pneumonia s/p rx COVID 19 negative 4.6.20 2. alcohol withdrawal 3. increased LFT improving 4. thrombocytopenia P 1. observe off antibiotics 2. will follow up clinically Subjective ROS Limited/Unobtainable: Yes Allergies: Coded Allergies: No Known Allergies (Unverified , 01/06/13) Objective Vital Signs Last 24 Hour Vital Signs Date Time Temp Pulse Resp B/P (MAP) Pulse Ox O2 Delivery O2 Flow Rate FiO2 08/03/19 09:00 Room Air 08/03/19 08:00 97.1 61 18 95/57 (70) 98 08/03/19 04:00 98.4 65 18 116/64 (81) 95 08/03/19 00:36 98.4 08/03/19 00:00 99.8 85 18 144/76 (98) 97 08/02/19 21:00 Room Air 08/02/19 20:00 99.7 81 19 153/74 (100) 97 08/02/19 16:00 98.0 83 18 120/74 (89) 94 Height (Feet): 5 Height (Inches): 4.00 Weight (Pounds): 136 Respiratory/Chest: lungs clear Cardiovascular: normal rate, regular rhythm, no gallop/murmur Abdomen: soft, non tender Extremities: no edema Laboratory Tests Test 08/03/19 04:50 Hepatitis A IgM Antibody Pending Current Medications Medications (Trade) Dose Ordered Sig/Artem Route PRN Reason Start Time Stop Time Status Last Admin Dose Admin Acetaminophen (Tylenol) 650 mg Q4H PRN ORAL Mild Pain (Pain Scale 1-3) 07/30/19 09:50 08/29/19 09:49 08/02/19 23:06 Acetaminophen (Tylenol) 650 mg Q4H PRN RECTAL Mild Pain (Pain Scale 1-3) 07/30/19 09:50 08/29/19 09:49 Chlordiazepoxide (Librium) 50 mg TID ORAL 07/30/19 09:51 08/06/19 09:50 08/03/19 08:52 Clonidine HCl (Catapres Tab) 0.1 mg Q4H PRN ORAL For High Blood Pressure 07/30/19 09:50 10/28/19 09:49 Dextrose/ Electrolytes 1,000 ml @ 100 mls/hr Q10H IV 08/01/19 13:30 08/31/19 13:29 08/03/19 05:37 Folic Acid 1 mg/ Magnesium Sulfate 2000 mg/ Multivitamins 10 ml/Sodium Chloride 1,014.2 ml @ 125 mls/ hr Q24H IV 07/31/19 09:00 08/24/19 08:59 08/03/19 08:51 Ibuprofen (Advil) 200 mg TIDPRN PRN ORAL fever 07/30/19 09:51 08/29/19 09:50 Lactulose (Cephulac) 20 gm THREE TIMES A DAY ORAL 08/02/19 09:15 09/01/19 09:14 08/03/19 08:52 Lorazepam (Ativan 2mg/ml 1ml) 2 mg Q4H PRN IV For Anxiety 07/30/19 09:51 08/06/19 09:50 08/03/19 02:28 Ondansetron HCl (Zofran) 4 mg Q6H PRN IVP Nausea & Vomiting 07/30/19 09:51 08/29/19 09:50 Pantoprazole (Protonix) 40 mg DAILY@0630 ORAL 07/31/19 06:30 08/24/19 06:29 08/02/19 06:07 Risperidone (RisperDAL) 1 mg BEDTIME ORAL 07/30/19 21:00 09/09/19 20:59 08/01/19 22:09 Thiamine HCl 100 mg/Dextrose 56 ml @ 112 mls/hr Q24H IVPB 07/31/19 09:00 08/24/19 08:59 08/03/19 08:52 Samson Moore MD Aug 03, 2019 12:06
--- NOTE | 2019-08-03 15:32 | NUR ---
CASE MANAGEMENT:REVIEW 08/01/2019 SI: ALCOHOL WITHDRAWAL DELIRIUM 100.0 97 18 111/67 97% ON RA K+ 3.2 BG 111 AST/ALT 722/260 ALB 2.9 IS: IV ZOSYN Q8HRS IV BANANA BAG Q24 IV THIAMINE Q24 IV D5@100ML/HR LACTULOSE PO TID PROTONIX PO QD LIBRIUM PO TID RISPERDAL PO QHS IV ATIVAN Q4HRS PRN ANXIETY \: TO 3E MED SURG STATUS DCP: FROM HOME PLAN: MONITOR FOR FEVER POSSIBLE ASPIRATION PNA REPLACE K IVF ADJUSTED CASE MANAGEMENT:REVIEW 08/02/2019 SI: ALCOHOL WITHDRAWAL DELIRIUM 100.0 97 18 111/67 97% ON RA K+ 3.2 BG 111 AST/ALT 722/260 ALB 2.9 IS: IV ZOSYN Q8HRS IV BANANA BAG Q24 IV THIAMINE Q24 IV D5@100ML/HR LACTULOSE PO TID PROTONIX PO QD LIBRIUM PO TID RISPERDAL PO QHS IV ATIVAN Q4HRS PRN ANXIETY \: TO 3E MED SURG STATUS DCP: FROM HOME PLAN: MONITOR FOR FEVER MONITOR AMMONIA/LFT'S ADDED LACTULOSE CASE MANAGEMENT:REVIEW 08/03/2019 SI: ALCOHOL WITHDRAWAL DELIRIUM 99.8 85 18 144/76 97% ON RA IS: IV ZOSYN Q8HRS IV BANANA BAG Q24 IV THIAMINE Q24 IV D5@100ML/HR LACTULOSE PO TID PROTONIX PO QD LIBRIUM PO TID RISPERDAL PO QHS IV ATIVAN Q4HRS PRN ANXIETY \: TO 3E MED SURG STATUS DCP: FROM HOME PLAN: MONITOR FOR FEVER MONITOR AMMONIA/LFT'S ADDED LACTULOSE OBSERVE OFF ABX HEP A IgM Ab- PENDING
[2019-08-03 16:00] VITALS: BP 108/68
[2019-08-03] MEDS ORDERED: Tubing IV Secondary IV ONE (17:30)
--- NOTE | 2019-08-03 17:32 | NUR ---
NURSE NOTES: Received order to d/c. discharge instructions and belongings given to patient. IV removed prior to d/c. pt is aware that needs to be fallow up with [facility] as out patient. pt will contact [facility] for transportation. I will f/u as needed. Addendum: 08/03/19 at 1902 by Geraldine Garcia RN please discard this notes. this note belong to another patient.
--- NOTE | 2019-08-03 19:02 | NUR ---
HAND-OFF: Report given to Meera RUBY, pt a/a/o laying in bed in stable condition.
--- NOTE | 2019-08-03 19:30 | NUR ---
NURSE NOTES: Received report from Bar Chandler, pt is sleeping with no s/s of respiratory distress, breaths regular unlabored on RA, pt has a swollen lower lip, no s/s of distress. Pt has Lt upper arm 22g with i.v fluids running , patent and asymptomatic, bed in low locked position , side rails padded for seizure precaution and call light with in reach, will continue with plan of care
[2019-08-03 20:00] VITALS: BP 131/66
[2019-08-04] VITALS: BP 137/90
[2019-08-04] MEDS: D5 1/2NS w/KCl 20mEq 1,000 ML IV SCH ×2 (01:56→11:30)
[2019-08-04 04:00] VITALS: BP 121/74
[2019-08-04 07:04] LABS: ALANINE AMINOTRANSFERASE 164 U/L (12-78); ALBUMIN 2.7 G/DL (3.4-5.0); ALBUMIN/GLOBULIN RATIO 0.7 (1.0-2.7); ALKALINE PHOSPHATASE 145 U/L (46-116); ANION GAP 9 mmol/L (5-15); ASPARTATE AMINO TRANSFERASE 198 U/L (15-37); BILIRUBIN,TOTAL 0.4 MG/DL (0.2-1.0); BLOOD UREA NITROGEN 6 mg/dL (7-18); CALCIUM 9.2 MG/DL (8.5-10.1); CARBON DIOXIDE 26 MMOL/L (21-32); CHLORIDE 108 MMOL/L (98-107); CREATININE 0.7 MG/DL (0.55-1.30); POTASSIUM 3.7 MMOL/L (3.5-5.1); SODIUM 143 MMOL/L (136-145)
--- NOTE | 2019-08-04 07:40 | NUR ---
HAND-OFF: Report given to FLORI [place]
--- NOTE | 2019-08-04 07:44 | NUR ---
NURSE NOTES: Received report from Meera RUBY. Patient is awake and oriented, no acute distress noted, patient does not appear to be in any pain. Patient is calm and sitting up in bed having breakfast, noted patient is not in restraints, will follow up with Dr. Kenney for d/c restraint order. IVF running per order through [facility]. Patient updated on plan of care for the day. Fall and seizure precautions maintained, side rails padded x2. Bueno to gravity drainage. Bed alarm armed, call light within reach.
[2019-08-04 08:00] VITALS: BP 117/72
[2019-08-04] MEDS: Thiamine HCl 100 MG in D5W 55 ML IVPB SCH (08:58)
[2019-08-04] MEDS: Lactulose 20gm/30ml UDC ORAL SCH ×2 (08:59→13:03)
[2019-08-04] MEDS: chlordiazePOXIDE 25mg Cap ORAL SCH ×2 (09:09→13:03)
[2019-08-04] MEDS: Folic Acid 1 MG, Magnesium Sulfate 2,000 MG, Multivitamin - 12 Injection 10 ML in Sodiu... IV SCH (09:39)
--- NOTE | 2019-08-04 10:15 | NUR ---
NURSE NOTES: D/c order for restraints received from Dr. Kenney. Restraints are removed. Patient is calmly sleeping in bed at this time. Fall precautions maintained, bed alarm is armed and side rails are upx3.
--- NOTE | 2019-08-04 11:01 | Infectious Diseases Prog Note ---
Assessment/Plan Assessment/Plan antibiotics : none A 1. aspiration pneumonia s/p rx COVID 19 negative 4.6.20 2. alcohol withdrawal 3. increased LFT improving 4. thrombocytopenia P 1. observe off antibiotics 2. will follow up clinically Subjective ROS Limited/Unobtainable: Yes Allergies: Coded Allergies: No Known Allergies (Unverified , 01/06/13) Objective Vital Signs Last 24 Hour Vital Signs Date Time Temp Pulse Resp B/P (MAP) Pulse Ox O2 Delivery O2 Flow Rate FiO2 08/04/19 09:00 Room Air 08/04/19 08:00 97.7 73 16 117/72 (87) 95 08/04/19 04:00 98.0 68 18 121/74 (90) 96 08/04/19 00:00 98.5 78 18 137/90 (106) 96 08/03/19 21:00 Room Air 08/03/19 20:00 98.2 74 16 131/66 (87) 96 08/03/19 16:00 98.0 89 18 108/68 (81) 96 08/03/19 12:00 98.0 72 18 95/62 (73) 98 Height (Feet): 5 Height (Inches): 4.00 Weight (Pounds): 136 Respiratory/Chest: lungs clear Cardiovascular: normal rate, regular rhythm, no gallop/murmur Abdomen: soft, non tender Extremities: no edema Laboratory Tests Test 08/04/19 04:35 Sodium Level 143 MMOL/L (136-145) Potassium Level 3.7 MMOL/L (3.5-5.1) Chloride Level 108 MMOL/L (98-107) H Carbon Dioxide Level 26 MMOL/L (21-32) Anion Gap 9 mmol/L (5-15) Blood Urea Nitrogen 6 mg/dL (7-18) L Creatinine 0.7 MG/DL (0.55-1.30) Estimat Glomerular Filtration Rate > 60 mL/min (>60) Glucose Level 106 MG/DL (74-106) Calcium Level 9.2 MG/DL (8.5-10.1) Total Bilirubin 0.4 MG/DL (0.2-1.0) Aspartate Amino Transf (AST/SGOT) 198 U/L (15-37) H Alanine Aminotransferase (ALT/SGPT) 164 U/L (12-78) H Alkaline Phosphatase 145 U/L (46-116) H Total Protein 6.5 G/DL (6.4-8.2) Albumin 2.7 G/DL (3.4-5.0) L Globulin 3.8 g/dL Albumin/Globulin Ratio 0.7 (1.0-2.7) L Current Medications Medications (Trade) Dose Ordered Sig/Artem Route PRN Reason Start Time Stop Time Status Last Admin Dose Admin Acetaminophen (Tylenol) 650 mg Q4H PRN ORAL Mild Pain (Pain Scale 1-3) 07/30/19 09:50 08/29/19 09:49 08/02/19 23:06 Acetaminophen (Tylenol) 650 mg Q4H PRN RECTAL Mild Pain (Pain Scale 1-3) 07/30/19 09:50 08/29/19 09:49 Chlordiazepoxide (Librium) 50 mg TID ORAL 07/30/19 09:51 08/06/19 09:50 08/04/19 09:09 Clonidine HCl (Catapres Tab) 0.1 mg Q4H PRN ORAL For High Blood Pressure 07/30/19 09:50 10/28/19 09:49 Dextrose/ Electrolytes 1,000 ml @ 100 mls/hr Q10H IV 08/01/19 13:30 08/31/19 13:29 08/04/19 01:56 Folic Acid 1 mg/ Magnesium Sulfate 2000 mg/ Multivitamins 10 ml/Sodium Chloride 1,014.2 ml @ 125 mls/ hr Q24H IV 07/31/19 09:00 08/24/19 08:59 08/04/19 09:39 Ibuprofen (Advil) 200 mg TIDPRN PRN ORAL fever 07/30/19 09:51 08/29/19 09:50 Lactulose (Cephulac) 20 gm THREE TIMES A DAY ORAL 08/02/19 09:15 09/01/19 09:14 08/04/19 08:59 Lorazepam (Ativan 2mg/ml 1ml) 2 mg Q4H PRN IV For Anxiety 07/30/19 09:51 08/06/19 09:50 08/03/19 02:28 Ondansetron HCl (Zofran) 4 mg Q6H PRN IVP Nausea & Vomiting 07/30/19 09:51 08/29/19 09:50 Pantoprazole (Protonix) 40 mg DAILY@0630 ORAL 07/31/19 06:30 08/24/19 06:29 08/04/19 06:29 Risperidone (RisperDAL) 1 mg BEDTIME ORAL 07/30/19 21:00 09/09/19 20:59 08/03/19 21:23 Thiamine HCl 100 mg/Dextrose 56 ml @ 112 mls/hr Q24H IVPB 07/31/19 09:00 08/24/19 08:59 08/04/19 08:58 Samson Moore MD Aug 04, 2019 11:01
--- NOTE | 2019-08-04 11:11 | NUR ---
CASE MANAGEMENT:REVIEW 08/04/2019 SI: ALCOHOL WITHDRAWAL DELIRIUM 97.7 73 16 117/72 95% ON RA CL-108 BUN 6 AST/ALT 198/164 ALKP 145 ALBUMIN 2.7 IS: IV ZOSYN Q8HRS IV BANANA BAG Q24 IV THIAMINE Q24 IV D5@100ML/HR LACTULOSE PO TID PROTONIX PO QD LIBRIUM PO TID RISPERDAL PO QHS IV ATIVAN Q4HRS PRN ANXIETY \: TO 3E MED SURG STATUS DCP: FROM HOME PLAN: MONITOR FOR FEVER MONITOR AMMONIA/LFT'S ADDED LACTULOSE OBSERVE OFF ABX HEP A IgM Ab- NEGATIVE HEP A AB TOTAL -POSITIVE HEP B ANTIBODY, QUAT <3.1 HEP B ANTIBODY-NEGATIVE HEP C ANTIBODY- 0.2 Addendum: 08/04/19 at 1119 by JENAE CHERY LVN CASE MANAGEMENT:REVIEW 08/04/2019 SI: ALCOHOL WITHDRAWAL DELIRIUM 97.7 73 16 117/72 95% ON RA CL-108 BUN 6 AST/ALT 198/164 ALKP 145 ALBUMIN 2.7 IS: IV BANANA BAG Q24 IV THIAMINE Q24 IV D5@100ML/HR LACTULOSE PO TID PROTONIX PO QD LIBRIUM PO TID RISPERDAL PO QHS IV ATIVAN Q4HRS PRN ANXIETY \: TO 3E MED SURG STATUS DCP: FROM HOME PLAN: MONITOR FOR FEVER MONITOR AMMONIA/LFT'S ADDED LACTULOSE OBSERVE OFF ABX HEP A IgM Ab- NEGATIVE HEP A AB TOTAL -POSITIVE HEP B ANTIBODY, QUAT <3.1 HEP B ANTIBODY-NEGATIVE HEP C ANTIBODY- 0.2
[2019-08-04 12:00] VITALS: BP 109/66
--- NOTE | 2019-08-04 13:19 | NUR ---
NURSE NOTES: Received order from Dr. Kenney to d/c yarbrough catheter. Yarbrough removed, patient tolerated well, following removal patient voided 250mL of urine without difficulty.
--- NOTE | 2019-08-04 13:32 | NUR ---
NURSE NOTES: Called patient's with translation assistance from Geraldine RUBY, voicemail left informing that patient is discharged. Received callback from patient's son, per patient's son patient's will be picked up today around 1700.
[2019-08-04 16:00] VITALS: BP 121/69
--- NOTE | 2019-08-04 17:34 | NUR ---
NURSE NOTES: Patient discharged without distress at 1725. Aftercare instructions provided to patient, aftercare instructions reviewed with patient in patient's [place] language. All belongings given to patient. Patient signed for aftercare instructions and belongings. IV removed intact. ID band removed. Patient provided with front wheel walker. Patient taken down to private vehicle, picked up by his and son.
--- NOTE | 2019-08-05 14:40 | Discharge Summary ---
Discharge Summary Discharge Summary _ DATE OF ADMISSION: 07/24/2019 DATE OF DISCHARGE: 08/04/2019 DISCHARGED BY: Dr. Kenney REASON FOR ADMISSION: 39 years old male with history of heavy alcohol use, questionable seizure, presented with symptoms of alcohol withdrawal. He was brought by family member due to alcohol intoxication and possible seizure. In emergency room patient was agitated and confused, and required several doses of Ativan. Patient denied fever, chills or cough. Laboratory work-up revealed no leukocytosis ,hemoglobin 12.8, hematocrit 40.4. Platelet count 77 . Sodium 134, potassium 3.4. BUN 16, creatinine 1.4. Glucose 149. Total bili 1.4, direct bili 0.6 . AST 130 , ALT 60. Albumin 4.2. Lipase 308. Urinalysis revealed no evidence of urinary tract infection. EKG revealed sinus tachycardia, no acute ischemic changes , heart rate 104 . Urine toxicology screen was negative. Serum alcohol was less than 3. Patient was tested for COVID-19 Patient subsequently admitted for further management . CONSULTANTS: ID specialist Dr. Moore psychiatrist [facility] COURSE: Patient admitted to medical surgical floor and was kept on droplet and contact isolation. Patient started on IV fluids with banana bag. Librium provided for withdrawal symptoms. Ativan was on board as needed for breakthrough seizure. Psychiatric psychiatrist followed. On 07/26 patient developed fevers. Chest x-ray demonstrated questionable patchy right upper lobe opacity , possibly representing infiltrate. Patient had no leukocytosis. Patient started on antibiotic as per ID specialist recommendation for aspiration pneumonia. Patient was closely monitored. Blood cultures were negative. Urine culture was negative. COVID-19 was not detected. Isolation was discontinued. Patient completed antibiotic while in the hospital. Fevers resolved. No leukocytosis. Repeated chest x-ray revealed no acute process. Aspiration precaution maintained. GI prophylaxis provided. Potassium was replaced. Renal parameters and electrolytes were closely monitored, and electrolytes corrected as needed. Creatinine from 1.4 down to 0.7. LFT initially trended up: on 07/29 AST 1443 and ALT 294, thenstarted to trend down. Prior to discharge AST 198, ALT 164 total bilirubin 0.4. Abdominal ultrasound demonstrated liver with diffuse mild increased echogenicity , consistent with a diffuse hepatocellular disease, most likely fatty change. No evidence of gallstones or dilated bile ducts. Hepatitis panel showed evidence of prior hepatitis A, no immunity for hepatitis B. Hepatitis C negative. Ammonia level 48, and patient started on lactulose. Platelet count from 77 up to 93. Thrombocytopenia likely due to ETOH abuse due to myelosuppression. Patient clinically stabilized and was ready for discharge home. Patient was counseled on abstinence from from ETOH. FINAL DIAGNOSES: Alcohol withdrawal with delirium Aspiration pneumonia , status post treatment Suspected COVID-19 -ruled out Altered mental status Alcohol dependence Elevated LFT -improved Thrombocytopenia DISCHARGE MEDICATIONS: Please refer to medication Reconciliation list. DISCHARGE INSTRUCTIONS: Patient was discharged home. Follow-up with primary care provider in 1 to 2 weeks. I have been assigned to dictate discharge summary for this account. I was not involved in the patient's management. Padmini Corrales NP Aug 05, 2019 14:40
== END 2019-08-04 17:30 | disposition home or self-care (01) | DRG 137 ==
LOC: EDBD 20:43 → EMR 21:16 → 2E 22:33 → EDBEDREQ 23:39 → 3E 07-29 23:30
DX: J69.0 Pneumonitis due to inhalation of food and vomit (principal); F10.231 Alcohol dependence with withdrawal delirium; K70.10 Alcoholic hepatitis without ascites; D69.6 Thrombocytopenia, unspecified; R79.89 Other specified abnormal findings of blood chemistry
CPT/HCPCS: 36415; 71045; 76700; 80053; 80307; 81003; 82140; 82248; 83605; 83690; 85007; 85025; 86708; 86709; 86803; 87040; 87086; 87340; 87517; 87635; 93005; 96361; 96374; 96376; 99291; G0480; J7030; J8499